=== PATIENT | male | born 1960 | race Caucasian/White ===

== ENCOUNTER 2019-02-14 05:55 | Observation (INO) ==
--- NOTE | 2019-01-23 13:13 | Anesthesiology Consultation ---
Date of Service January 23, 2019 Assessment & Plan (1) Encounter for pre-operative examination: Chart Review Chart Review: Acceptable Risk for Surgery and Patient NOT seen in Pre Admission Testing Consults Requested none History Surgery Operation Date: 02/14/19 09:05 Proposed Procedures p C6-C7 Anterior Cervical Discectomy Fusion with Spinal Cord Monitoring - Kirk Barajas DO Height/Weight Height: 5 ft 10 in Weight: 113.398 kg Allergies Allergy/AdvReac Type Severity Reaction Status Date / Time adhesive Allergy Unknown Rash Verified 01/23/19 08:54 ciprofloxacin [From Cipro] Allergy Unknown Rash Verified 01/23/19 08:43 tetanus toxoid, adsorbed Allergy Unknown Rash Verified 01/23/19 08:43 Medications Home Medications Medication Instructions Recorded Confirmed Last Taken allopurinol 100 mg PO BID 01/23/19 01/23/19 Unknown atorvastatin [Lipitor] 40 mg PO HS 01/23/19 01/23/19 Unknown docusate sodium [Stool Softener] 100 mg PO HS 01/23/19 01/23/19 Unknown hydrocodone-acetaminophen [[place]] 1 tab PO BID PRN 01/23/19 01/23/19 Unknown levothyroxine [Synthroid] 137 mcg PO QAM 01/23/19 01/23/19 Unknown simethicone [Gas-X Extra Strength] 125 mg PO BID 01/23/19 01/23/19 Unknown Past Medical History Medical History Gout Hyperlipidemia Numbness and tingling RIGHT ARM AND SMALL FINGER Past Surgical History Surgical History History of Angi fundoplication Hx of cervical spine surgery Hx of cholecystectomy Hx of colonoscopy Hx of hernia repair X2 STOP BANG Total 3 Social History Smoking Status: Never smoker Do You Dip or Chew Tobacco: No Hx Alcohol Use: Yes Alcohol type: wine alcohol intake frequency: holidays/special occasions only Hx Substance Use: No Testing Laboratory Results 12/27/18 NA 141 K 3.8 CL 107 CO2 25.4 BUN 11 CREATININE .91 GLUCOSE 84 Electrocardiogram Date: 12/27/18 Findings: + SB @ (58 bpm) Chest X-Ray Date: 12/27/18 Findings: + NAD
[2019-02-14] MEDS ORDERED: LR 15ML/HR IV SCH (06:00)
[2019-02-14] MEDS ORDERED: ACETAMINOPHEN 500 MG TAB PO SCH (06:00)
[2019-02-14] MEDS ORDERED: GABAPENTIN 600 MG DOSE PO SCH (06:00)
[2019-02-14] MEDS ORDERED: CeleBREX 200 MG CAP PO SCH (06:00)
[2019-02-14] MEDS ORDERED: CEFAZOLIN 2000MG 2,000 MG/15 ML SYR IV SCH (06:00)
[2019-02-14] MEDS ORDERED: PROPOFOL IV EMULSION 10 MG/ML 20 ML VIAL IV ONE (06:43)
[2019-02-14] MEDS ORDERED: MIDAZOLAM HCL 1 MG/ML 2ML VIAL ONE (06:43)
[2019-02-14] MEDS ORDERED: fentaNYL citrate 100 MCG/2 ML VIAL ONE ×2 (06:43→08:37)
[2019-02-14] MEDS ORDERED: ROCURONIUM BROMIDE 10 MG/ML 5 ML VIAL ONE (06:43)
[2019-02-14] MEDS ORDERED: LIDOCAINE HCL 2% 2 ML VIAL/AMP(20MG/ML) INFIL ONE (06:43)
[2019-02-14] MEDS ORDERED: ONDANSETRON INJ 2 MG/ML 2 ML VIAL ONE (06:43)
[2019-02-14] MEDS ORDERED: ONDANSETRON INJ 2 MG/ML 2 ML VIAL IV PRN ×2 (07:29→11:52)
[2019-02-14] MEDS ORDERED: fentaNYL citrate 100 MCG/2 ML VIAL IV PRN (07:29)
[2019-02-14] MEDS ORDERED: ePHEDrine sulfate 50 MG/ML AMP IV PRN (07:29)
[2019-02-14] MEDS ORDERED: ATROPINE SULFATE 0.1 MG/ML 10ML SYR IV PRN (07:29)
[2019-02-14] MEDS ORDERED: BACITRACIN INJ 50,000 UNIT VIAL ONE (07:31)
--- NOTE | 2019-02-14 08:07 | History & Physical Bridge Note ---
Date of Service February 14, 2019 History & Physical Bridge Note I have examined the patient, reviewed the History & Physical and in the interval since the performance of the History & Physical I have noted the following changes of clinical significance: no changes noted
--- NOTE | 2019-02-14 08:08 | History & Physical Report ---
Date of Service February 14, 2019 Assessment & Plan (1) Cervical stenosis of spinal canal: Anterior cervical discectomy and fusion C6-C7 Present on Admission?: Yes History of Present Illness Chief Complaint: Neck and arm pain Primary Care Provider: Chan Conti This is a 58-year-old male who presents with chronic persistent neck and arm pain. After failing extensive course of nonoperative care is here for surgical intervention. Allergies Allergy/AdvReac Type Severity Reaction Status Date / Time adhesive Allergy Unknown Rash Verified 02/14/19 06:25 ciprofloxacin [From Cipro] Allergy Unknown Rash Verified 02/14/19 06:25 tetanus toxoid, adsorbed Allergy Unknown Rash Verified 02/14/19 06:25 Home Medications Home Medications Medication Instructions Recorded Confirmed Type allopurinol 100 mg PO BID 01/23/19 02/14/19 History atorvastatin [Lipitor] 40 mg PO HS 01/23/19 02/14/19 History docusate sodium [Stool Softener] 100 mg PO HS 01/23/19 02/14/19 History hydrocodone-acetaminophen [[place]] 1 tab PO BID PRN 01/23/19 02/14/19 History levothyroxine [Synthroid] 137 mcg PO QAM 01/23/19 02/14/19 History simethicone [Gas-X Extra Strength] 125 mg PO BID 01/23/19 02/14/19 History Past Med/Surg History Medical History Gout Hyperlipidemia Numbness and tingling RIGHT ARM AND SMALL FINGER Surgical History History of Angi fundoplication Hx of cervical spine surgery Hx of cholecystectomy Hx of colonoscopy Hx of hernia repair X2 Social History Preferred Language: Japanese Communication Ability: Effective Beliefs That Will Affect Care: None Current Living Situation: Spouse Feels Safe at Home: Yes Safety Concerns: Feels Safe At This Time Smoking Status: Never smoker Do You Dip or Chew Tobacco: No ; Second Hand Exposure: No ; Hx Alcohol Use: Yes Alcohol type: wine Hx Substance Use: No Physical Exam Physical Exam: Patient is alert and oriented neurologically intact. Results & Data Vital Signs (Past 12 Hours) Vital Signs Temp Pulse Resp BP Pulse Ox 02/14/19 06:26 36.6 C 52 L 20 134/90 97
[2019-02-14] MEDS ORDERED: HYDROmorphone INJ 2 MG/ML SYR/VIAL ONE (09:05)
[2019-02-14] MEDS ORDERED: NEOSTIGMINE METHYLSULFATE 1 MG/ML 10ML VIAL ONE (09:32)
[2019-02-14] MEDS ORDERED: GLYCOPYRROLATE 0.2 MG/ML VIAL ONE (09:32)
[2019-02-14] MEDS ORDERED: FLOSEAL HEMOSTATIC MATRIX 10ML TOP ONE (09:39)
--- NOTE | 2019-02-14 09:45 | Operative Report ---
Post Operative Report Pre & Post Diagnosis Operation Date: 02/14/19 07:45 Pre-Op Diagnosis: Cervical spinal stenosis with herniated was pulposis and radiculopathy Post-Op Diagnosis: Same I identified the patient and participated in the time-out.: Yes Procedure Operation Date: 02/14/19 07:45 Actual Procedures #1 anterior cervical discectomy with bilateral foraminotomies C6-7. #2 anterior cervical arthrodesis C6-7. #3 placement of Spira 9 mm cage filled with DBM C6- 7. #4 placement of zurita plate and screws across C6-7. Surgeon Kirk Barajas, DO [employer] None Estimated Blood Loss 10 Findings See Below Patient is 5 foot 8 inches tall weighing over 114 kg with a BMI in excess of 38. Patient's significant body habitus did create marked technical difficulty in performing his procedure adding at least 50% increase in operative time. Specimens None Indications This is a 58-year-old male who presents with above-mentioned diagnosis after failing extensive course of nonoperative care is here for surgical intervention. Description of Procedure Patient was met with identified and informed consent obtained. Patient was then taken to the operative suite underwent intubation placed in supine position Weston table with head Camacho head piece assembler. All bony prominences well-padded eyes inspected to ensure no external pressure placed upon but this point the anterior cervical spine was prepped and draped in normal sterile fashion. With the assistance of fluoroscopy identified the C6-7 level and a transverse incision was placed on the right anterior aspect of the cervical spine overlying this region. Sharp dissection with the assistance of bipolar electrocautery was performed down to and exposing the anterior cervical spine at C6-7. Self- retaining retractors placed. Verified my position with fluoroscopy. Then performed a complete discectomy of C6-7 out to the uncovertebral joints bilaterally. Sherrill distracting pins you were utilized to assist in visualization. I removed all posterior annular fibers longitudinal ligament bilateral foraminotomies performed. All disc material was removed. Endplates were then burred to subcortical being bone and a 9 mm spiral cage filled with DBM tapped in position. Distraction apparatus was removed and a zurita plate and screws applied with the assistance of fluoroscopy. Incision was then copious irrigated explored to ensure no damage to surrounding structures remaining bleeding. 10 round RUSTY drain inserted. The incision was then closed with 2 Vicryl in the fashion of 4 Monocryl for final skin closure. Steri-Strip sterile dressings placed. Patient will continue PACU stable condition. Please note spinal cord monitoring was utilized that the procedure no changes noted. I attest to the content of the Intraoperative Record and any orders documented therein. Any exceptions are noted below.
--- NOTE | 2019-02-14 09:51 | Fluoroscopy Report ---
FL cervical 2-3V CLINICAL HISTORY: ACDF C6-C7 COMPARISON STUDY: None FLUOROSCOPY TIME: 17 seconds NUMBER OF FLUOROSCOPIC IMAGES: 4 FINDINGS: Findings consistent with image intensifier support for an anterior cervical fusion at C6-C7 . IMPRESSION: Image intensifier support for an anterior cervical fusion at C6-C7 The above report was generated using voice recognition software. It may contain grammatical, syntax or spelling errors. Electronically signed by: Manuel Negrete M.D. 02/14/2019 9:49 AM
--- NOTE | 2019-02-14 10:40 | Anesthesiology Progress Note ---
Date of Service February 14, 2019 Anesthesia Post Procedure Vital Signs Vital Signs: Temp Pulse Pulse Resp BP Pulse Ox 02/14/19 10:25 50 L 17 147/93 H 99 02/14/19 10:15 56 L 17 139/90 100 02/14/19 10:05 62 17 141/92 H 99 02/14/19 09:56 96.8 F L 77 18 148/98 H 98 02/14/19 06:26 97.9 F 52 L 20 134/90 97 Pain Intensity Right Knee: Pain Intensity: 8 Anterior Neck: Pain Intensity: 3 Transfer of Care Handoff Completed per policy Notes Mental Status: alert / awake / arousable and participated in evaluation Patient Amnestic to Procedure: Yes Nausea / Vomiting: adequately controlled Pain: adequately controlled Airway Patency, RR, SpO2: stable & adequate BP & HR: stable & adequate Hydration State: stable & adequate Anesthetic Complications: no major complications apparent and Pt Satisfied with anesthetic care
[2019-02-14] MEDS ORDERED: ONDANSETRON 4 MG TAB PO PRN (11:52)
[2019-02-14] MEDS ORDERED: SOD PHOSPHATE/SOD BIPHOSPHATE ENEMA 132 ML BTL PR PRN (11:52)
[2019-02-14] MEDS ORDERED: HYDROmorphone INJ 0.5 MG/0.5 ML SYR IV PRN (11:52)
[2019-02-14] MEDS ORDERED: LORazepam 0.5 MG TAB PO PRN (11:52)
[2019-02-14] MEDS ORDERED: DO NOT ADMINISTER FLU VACCINE PRN (11:52)
[2019-02-14] MEDS ORDERED: ACETAMINOPHEN 1,000 MG/100 ML VIAL IV PRN (11:52)
[2019-02-14] MEDS ORDERED: HYDROmorphone INJ 1 MG/ML SYRINGE IV PRN (11:52)
[2019-02-14] MEDS ORDERED: ALUMINUM/MAGNESIUM SUSP 30 ML UDC PO PRN (11:52)
[2019-02-14] MEDS ORDERED: FAMOTIDINE 20 MG TAB PO PRN (11:52)
[2019-02-14] MEDS ORDERED: METOCLOPRAMIDE HCL INJ 5 MG/ML 2 ML VIAL IV PRN (11:52)
[2019-02-14] MEDS ORDERED: DEXAMETHASONE SOD PHOSPHATE 8 MG in SYRINGE 0 ML IV PRN (11:52)
[2019-02-14] MEDS ORDERED: RACEPINEPHRINE 2.25% NEBU SOLN 0.5 ML VIAL INH PRN (11:52)
[2019-02-14] MEDS ORDERED: TRAMADOL HCL 50 MG TABLET PO PRN (11:52)
[2019-02-14] MEDS ORDERED: LORazepam 0.5 MG/1 ML VIAL IV PRN (11:52)
[2019-02-14] MEDS ORDERED: PROMETHAZINE HCL 12.5 MG in SODIUM CHLORIDE 0.9% 50 ML IV PRN (11:52)
[2019-02-14] MEDS ORDERED: ACETAMINOPHEN 500 MG TAB PO PRN (11:52)
[2019-02-14] MEDS ORDERED: NALOXONE HCL 0.4 MG/1 ML VIAL/CARP IV PRN (11:52)
[2019-02-14] MEDS ORDERED: DO NOT ADMINISTER PNEUMOCOCCAL VACCINE PRN (11:52)
[2019-02-14] MEDS ORDERED: MAGNESIUM HYDROXIDE SUSP 30 ML UDC PO PRN (11:52)
[2019-02-14] MEDS: OXYCODONE HCL IR 5 MG TAB (IMMEDIATE RELEASE) PO PRN ×3 (13:34→23:34)
[2019-02-14] MEDS: LACTATED RINGER'S 1,000 ML IV SCH ×2 (15:25→23:37)
[2019-02-14] MEDS: CEFAZOLIN 2000MG 2,000 MG/15 ML SYR IV SCH ×2 (15:25→23:36)
[2019-02-14] MEDS: SIMETHICONE 80 MG CHEW PO SCH (20:46)
[2019-02-14] MEDS: allopurinoL 100 MG TAB PO SCH (20:46)
[2019-02-14] MEDS ORDERED: DOCUSATE SODIUM/SENNA 50/8.6MG TAB PO SCH (21:00)
[2019-02-14] MEDS ORDERED: NON-FORMULARY MEDICATION (Docusate Sodium [Stool Softener] 100 MG) PO SCH (21:00)
[2019-02-14] MEDS ORDERED: ATORVASTATIN 40 MG TAB PO SCH (21:00)
[2019-02-15 05:57] LABS: Basophils # (auto) 0.02 K/uL (0-0.2); Basophils % (auto) 0.3 %; Eosinophils # (auto) 0.16 K/uL (0-0.5); Eosinophils % (auto) 2.2 %; Hematocrit (blood only) 42.4 % (42-52); Hemoglobin 13.7 g/dL (14.0-18.0); Immature Granulocytes # (auto) 0.01 K/uL (0.00-0.02); Immature Granulocytes % (auto) 0.1 %; Lymphocytes # (auto) 1.41 K/uL (1.2-3.4); Lymphocytes % (auto) 19.1 %; Mean Corpuscular Hemoglobin 31.6 pg (25-34); Mean Corpuscular Hgb Conc 32.3 g/dL (32-36); Mean Corpuscular Volume 97.9 fL (80-100); Mean Platelet Volume 10.1 fL (7.4-10.4); Monocytes # (auto) 0.66 K/uL (0.11-0.59); Neutrophils # (auto) 5.11 K/uL (1.4-6.5); Neutrophils % (auto) 69.3 %; Platelet Count 165 K/uL (130-400); RDW Coefficient of Variation 13.4 % (11.5-14.5); RDW Standard Deviation 48.5 fL (36.4-46.3); Red Blood Count 4.33 M/uL (4.7-6.1); White Blood Count 7.37 K/uL (4.8-10.8)
[2019-02-15] MEDS: OXYCODONE HCL IR 5 MG TAB (IMMEDIATE RELEASE) PO PRN ×2 (06:29→11:19)
[2019-02-15] MEDS ORDERED: LEVOTHYROXINE SODIUM 137 MCG TABLET PO SCH ×2 (06:30→09:00)
[2019-02-15 06:31] LABS: BUN Creatinine Ratio 12.2 (10-20); Creatinine Clr Calc Pharmacy 106.4 ml/min; Est GFR (African American) 103.9; Est GFR (Non-African American) 89.6; Potassium 4.1 mmol/L (3.5-5.1)
[2019-02-15] MEDS: allopurinoL 100 MG TAB PO SCH (08:31)
[2019-02-15] MEDS: SIMETHICONE 80 MG CHEW PO SCH (08:31)
[2019-02-15] MEDS ORDERED: POLYETHYLENE (MIRALAX) 17 GM PACK PO SCH (09:45)
--- NOTE | 2019-02-15 10:15 | Discharge Summary ---
Date of Service February 15, 2019 Admission HPI Per Admitting Provider This is a 58-year-old male who presents with chronic persistent neck and arm pain. After failing extensive course of nonoperative care is here for surgical intervention. Principal Diagnosis Cervical spinal stenosis with radiculopathy Discharge Data Allergies Allergy/AdvReac Type Severity Reaction Status Date / Time adhesive Allergy Unknown Rash Verified 02/14/19 06:25 ciprofloxacin [From Cipro] Allergy Unknown Rash Verified 02/14/19 06:25 tetanus toxoid, adsorbed Allergy Unknown Rash Verified 02/14/19 06:25 Procedures Performed Operation Date: 02/14/19 07:45 Actual Procedures p C6-C7 Anterior Cervical Discectomy Fusion with Spinal Cord Monitoring(Not Applicable) - Kirk Barajas DO Ordered Studies 02/14/19 07:45 FL cervical 2-3V Routine FL fluoroscopy <1hr Routine Hospital Course (1) Cervical stenosis of spinal canal: Patient underwent anterior cervical discectomy and fusion tolerated this well was taken to orthopedic for possibly. Postop day 1 he was up and ambulating swallowing well no hoarseness. Arm symptoms improved. Strength intact. Subsequently discharged home. Discharge orders instructions from the chart for further review. Total Time Total Time Spent Total Time Spent (In Minutes): 20 minutes Discharge Plan Discharge Items Patient Disposition: Home - Self-Care Reason For Visit: Spinal Stenosis, Cervical Region Discharge Diagnosis: Cervical spinal stenosis with radiculopathy Activity: Per Instructions section Non-emergency contact: Primary Care Provider Call non-emergency contact if: you have any medication questions Follow-up/Referrals: Chan Conti DO [Primary Care Provider] - Diet: Regular Addtl Attending Provider Instructions: ACTIVITY RECOMMENDATIONS: SELF CARE INSTRUCTIONS AFTER CERVICAL FUSIONS 1. No smoking. Smoking drastically decreases the chance of a solid fusion. 2. No bending, lifting more than 5 pounds, or twisting (roll like a log when turning in bed). 3. You may shower 3 days after surgery. Thoroughly dry wound. Do not soak in the tub. 4. Cervical collar: Must be worn at all times including sleeping. You may remove the brace only to bath, eat and if you are sitting in a recliner. 5. Please walk as much as you can for exercise. Gradually increase the distance that you walk as your endurance increases. SPECIAL CARE INSTRUCTIONS: VERY IMPORTANT TO READ AND REVIEW A. Do not take any anti-inflammatory medications (i.e. Indocin, Advil, Aspirin, Naprosyn, Aleve, Motrin, etc.) as these may inhibit the chance of a solid fusion. Tylenol is okay to take. B. Your surgical incision has been closed with a cosmetic suture under the skin that will dissolve in about 6 weeks. In 14 days, you can use a pair of clean scissors and cut the suture that is left outside of the skin at the ends of your incision. C. Complications are uncommon, but please contact us if you have any signs or symptoms of: 1. wound infection (fever higher than 102.5 degrees F, redness, separation of wound, drainage, or increasing pain from the incision) 2. blood clots in legs (pain, swelling, redness and warmth in legs) 3. urinary tract infection (fever higher than 102.5 degrees, burning upon urination or increased frequency of urination) 4. nerve problems (inability to walk on your toes or heels, numbness, loss of bowel or bladder control) 5. any other symptoms that concern you. D. Please call the office at if you have any concerns or questions about your operation or recovery. MANAGING PAIN AFTER SPINAL SURGERY 1. Narcotic medication is intended for short-term use and will be provided for surgical pain. Surgical pain usually lasts for a period of 4-6 weeks. Narcotic medication includes Percocet, Vicodin, Darvocet, Tylenol #3 or Lortab. 2. Longer-term pain is more appropriately treated with non-narcotic medication such as Tylenol ES. 3. Muscle spasm is not appropriately treated with narcotics. Muscle relaxers such as Soma, Flexeril or Skelaxin can be used along with Tylenol ES. 4. Remember that we all live with some "aches and pains". This is not unusual or uncommon after an injury or as we get older. 5. We will provide appropriate medication within the normal guidelines of their prescribed use. We will also be very cautious and aware of potential abuse and extended duration of patients' medication needs. 6. Please allow 2-3 days to process refills. Prescriptions will not be mailed but must be picked up at the office. FOLLOW UP VISIT: Keep your scheduled follow-up appointment. Any questions, please call the office at . Pending Studies at Discharge: No Stand-Alone Forms: [facility] [place], Smoking Cessation Medications and DC Order Prescriptions: New oxycodone 5 mg Tablet 5 mg PO Q4H PRN (Reason: pain) Qty: 20 RF: 0 tramadol 50 mg Tablet 50 mg PO Q4H PRN (Reason: pain) Qty: 20 RF: 0 Continued atorvastatin [Lipitor] 40 mg Tablet 40 mg PO HS RF: 0 levothyroxine [Synthroid] 137 mcg Tablet 137 mcg PO QAM RF: 0 hydrocodone-acetaminophen [[place]] 5-325 mg Tablet 1 tab PO BID PRN (Reason: Pain) RF: 0 allopurinol 100 mg Tablet 100 mg PO BID RF: 0 docusate sodium [Stool Softener] 100 mg Tablet 100 mg PO HS RF: 0 simethicone [Gas-X Extra Strength] 125 mg Capsule 125 mg PO BID RF: 0 Discharge Orders: Discharge Order (Routine); Ordered 02/15/19 Ordered By: Kirk Barajas Admission Data Admit Date/Time: 02/14/19 09:47 Attending Provider: Kirk Barajas Admit Provider: Kirk Barajas Primary Care Provider: Chan Conti
[2019-02-16] MEDS ORDERED: bisacodyL 10 MG SUPP PR PRN (09:45)
== END 2019-02-15 11:39 | disposition home or self-care (01) ==
LOC: 3E 05:55 → ASU 05:55

== ENCOUNTER 2022-07-29 09:44 | Inpatient (IN) ==
--- NOTE | 2022-07-09 10:17 | PAT Medication Instructions ---
Medication Instructions Date of Service July 09, 2022 Home Medications Medication Instructions Recorded oxycodone 5 mg tablet 5 mg PO Q4H PRN pain #20 tabs 02/15/19 Medication List: allopurinol 100 mg tablet 100 mg PO BID atorvastatin 40 mg tablet (Lipitor) 40 mg PO HS docusate sodium 100 mg tablet (Stool Softener) 100 mg PO HS hydrocodone 5 mg-acetaminophen 325 mg tablet ([place]) 1 tab PO TID PRN Pain simethicone 125 mg capsule (Gas-X Extra Strength) 125 mg PO BID oxycodone 5 mg tablet 5 mg PO Q4H PRN pain #20 tabs ascorbic acid (vitamin C) 500 mg tablet (Vitamin C) 500 mg PO QAM cholecalciferol (vitamin D3) 50 mcg (2,000 unit) capsule (Vitamin D3) 50 mcg PO QAM cyanocobalamin (vitamin B-12) 2,500 mcg sublingual tablet (Vitamin B-12) 2,500 mcg sublingual QAM levothyroxine 150 mcg tablet 150 mcg PO QAM magnesium 250 mg tablet 250 mg PO QAM DO NOT take the morning of surgery magnesium 250 mg tablet 250 mg PO QAM ascorbic acid (vitamin C) 500 mg tablet (Vitamin C) 500 mg PO QAM cholecalciferol (vitamin D3) 50 mcg (2,000 unit) capsule (Vitamin D3) 50 mcg PO QAM cyanocobalamin (vitamin B-12) 2,500 mcg sublingual tablet (Vitamin B-12) 2,500 mcg sublingual QAM simethicone 125 mg capsule (Gas-X Extra Strength) 125 mg PO BID Take morning of surgery With a small sip of water, OTHERWISE NOTHING TO EAT OR DRINK AFTER MIDNIGHT: hydrocodone 5 mg-acetaminophen 325 mg tablet ([place]) 1 tab PO TID PRN Pain (if needed) oxycodone 5 mg tablet 5 mg PO Q4H PRN pain (if needed) allopurinol 100 mg tablet 100 mg PO BID levothyroxine 150 mcg tablet 150 mcg PO QAM Take evening before surgery hydrocodone 5 mg-acetaminophen 325 mg tablet ([place]) 1 tab PO TID PRN Pain (if needed) oxycodone 5 mg tablet 5 mg PO Q4H PRN pain (if needed) allopurinol 100 mg tablet 100 mg PO BID atorvastatin 40 mg tablet (Lipitor) 40 mg PO HS docusate sodium 100 mg tablet (Stool Softener) 100 mg PO HS simethicone 125 mg capsule (Gas-X Extra Strength) 125 mg PO BID (if needed) Other Notes If you have any questions please call us at [phone] or [phone] or [phone] or [phone]
--- NOTE | 2022-07-15 11:32 | Anesthesiology Consultation ---
Date of Service July 15, 2022 Assessment & Plan (1) Encounter for pre-operative examination: Chart Review Chart Review: Acceptable Risk for Surgery (pending PCP clearance 07/17/22) and Patient seen in Pre Admission Testing - Awaiting PCP clearance 07/17/22 Per PAT appt on 07/15/22, patient denies any recent travel or large group activities. Pt is vaccinated for Covid. Will leave to surgeon's discretion if preop Covid testing needed. Educated on importance of using Covid precautions one week prior to surgery C6-7 ACDF 02/14/19= Done under GA with Grade 2 view with MAC #3. ETT #7.5. Atraumatic DL x 1 Teaching & Discussion Pre-Anesthesia Teaching/Discussion Notes: Instructed NPO after midnight before surgery,except medications with 15 cc of water. Medication instructions provided according to the PAT guidelines. History Surgery Operation Date: 07/29/22 10:05 Proposed Procedures p L4-S1 Decompression and Fusion, Spinal Cord Monitoring - Kirk Barajas, Height/Weight Height: 5 ft 9 in Weight: 121.4 kg Allergies Allergy/AdvReac Type Severity Reaction Status Date / Time adhesive Allergy Unknown Rash Verified 07/09/22 08:27 ciprofloxacin [From Cipro] Allergy Unknown Rash Verified 07/09/22 08:27 tetanus toxoid, adsorbed Allergy Unknown Rash Verified 07/09/22 08:27 Medications Home Medications Medication Instructions Recorded Confirmed Last Taken allopurinol 100 mg tablet 100 mg PO BID 01/23/19 07/09/22 02/13/19 20:00 atorvastatin 40 mg tablet (Lipitor) 40 mg PO HS 01/23/19 07/09/22 02/13/19 20:00 docusate sodium 100 mg tablet 100 mg PO HS 01/23/19 07/09/22 02/13/19 20:00 (Stool Softener) hydrocodone 5 mg-acetaminophen 325 1 tab PO TID PRN Pain 01/23/19 07/09/22 02/14/19 04:30 mg tablet ([place]) simethicone 125 mg capsule (Gas-X 125 mg PO BID 01/23/19 07/09/22 02/13/19 20:00 Extra Strength) oxycodone 5 mg tablet 5 mg PO Q4H PRN pain #20 tabs 02/15/19 07/09/22 Unknown ascorbic acid (vitamin C) 500 mg 500 mg PO QAM 07/09/22 07/09/22 Unknown tablet (Vitamin C) cholecalciferol (vitamin D3) 50 50 mcg PO QAM 07/09/22 07/09/22 Unknown mcg (2,000 unit) capsule (Vitamin D3) cyanocobalamin (vitamin B-12) 2,500 mcg sublingual QAM 07/09/22 07/09/22 Unknown 2,500 mcg sublingual tablet (Vitamin B-12) levothyroxine 150 mcg tablet 150 mcg PO QAM 07/09/22 07/09/22 Unknown magnesium 250 mg tablet 250 mg PO QAM 07/09/22 07/09/22 Unknown Past Medical History Medical History (Updated 07/15/22 @ 15:09 by Suma Cueto PA-C) Chronic back pain Gout No recent issues History of Lyme disease 2001- treated - caused issues with thyroid- resulted in hypothyroidism Hyperlipidemia Hypothyroidism Exercise / Class Metabolic Activity II 4-5 Yardwork/Stairs/Walk up hill (one flight stairs - no chest pain or SOB ) Past Family History Family History Other No family history of adverse response to anesthesia Past Surgical History Surgical History History of Angi fundoplication Hx of blepharoplasty eyelid lift Hx of cervical spine surgery Hx of cholecystectomy Hx of colonoscopy Hx of hernia repair X2 Past Anesthesia History No Hx of Anesthesia Complications and No Family Hx of Anesthesia Complications History of PONV No Hx of PONV and No Hx of Motion Sickness Social History Smoking Status: Never smoker Do You Dip or Chew Tobacco: No Hx Alcohol Use: Yes Alcohol type: wine alcohol intake frequency: holidays/special occasions only Hx Substance Use: No substance use type: does not use Review of Systems Hx of snoring - no hx of sleep study Patient denies chest pain, shortness of breath, dyspnea on exertion, reflux, cough, wheezing, palpitations. No hx of seizures, stroke, DE. No hx of blood clots or blood transfusions Physical Exam Vital Signs VITALS BP 127/82 P 61 TEMP 97.7 SP02 100% RESP 16 Constitutional no acute distress ENMT Mouth: no TMJ clicking Thyromental Distance: < 3.5 Finger Breadths (2.5) Mallampati Class: II (smaller airway ) Crowns to molars Neck + limited neck extension (significant ) Respiratory normal respiratory effort; no respiratory distress Auscultation: lungs clear to auscultation bilaterally; no wheezes Cardiovascular Rate/Rhythm: regular rate and regular rhythm Heart Sounds: no murmur Vessels: no carotid bruit Musculoskeletal Spine: no pain with cervical ROM Extremities: extremities normal to inspection Psychiatric Orientation: alert Lab Results Anesthesia Preop Results Results Anesthesia Widget: WBC 5.97 K/ul (4.8-10.8) 07/15/22 Hgb 15.1 g/dl (14.0-18.0) 07/15/22 Hct 44.3 % (42.0-52.0) 07/15/22 Plt 227 K/uL (130-400) 07/15/22 Na 140 mmol/L (136-145) 07/15/22 K 4.2 mmol/L (3.5-5.1) 07/15/22 Cl 106 mmol/L (98-107) 07/15/22 CO2 28 mmol/L (21-32) 07/15/22 BUN 12 mg/dl (6-23) 07/15/22 Creat 0.85 mg/dl (0.6-1.4) 07/15/22 Glucose Level 91 mg/dl (70-99(Fasting)) 07/15/22 PT 10.3 Seconds (9.0-12.0) 07/15/22 PTT 27.7 Seconds (21.0-31.0) 07/15/22 INR 1.0 (0.9-1.1) 07/15/22 Urine Color Dark Yellow 07/15/22 Urine Appearance Clear (Clear) 07/15/22 Urine pH 7.0 (4.5-7.5) 07/15/22 Urine Specific [place] 1.026 (1.000-1.030) 07/15/22 Urine Protein Negative (Negative) 07/15/22 Urine Glucose (UA) Negative (Negative) 07/15/22 Urine Ketones Trace (Negative) H 07/15/22 Urine Blood Negative (Negative) 07/15/22 Urine Nitrite Negative (Negative) 07/15/22 Urine Bilirubin Negative (Negative) 07/15/22 Urine Urobilinogen Negative (Negative) 07/15/22 Urine Leukocyte Esterase Negative (Negative) 07/15/22 Blood Type A Positive 07/15/22 Antibody Screen NEGATIVE 07/15/22 Testing Electrocardiogram Date: 07/15/22 Findings: + SB @ (52bpm) Otherwise normal EKG per cardio Chest X-Ray Date: 07/15/22 Findings: + NAD COVID-19 Risk Screen Screening Information COVID-19 Screen Date: 07/15/22 Exposure 21 Days Family/Household +COVID Last 21 Days: No Exposure 10 Days Any COVID Exposure Last 10 Days: No Symptoms Last 10 Days Experienced COVID Sx Last 10 Days: No + COVID 0-90 Days COVID + in Last 0-90 Days: No Risk Plan COVID Risk Plan: No Risk Identified Patient Education COVID Preop Screening Education Complete: Yes
[~2022-07-29 09:44] MED LIST: ACETAMINOPHEN 500 MG TAB PO SCH; CeleBREX 200 MG CAP PO SCH; DEXAMETHASONE SOD INJ 4 MG/ML VIAL ONE; GABAPENTIN 600 MG DOSE PO SCH; GLYCOPYRROLATE 0.2 MG/ML VIAL ONE; LIDOCAINE 2% 2 ML VIAL/AMP(20MG/ML) INFIL ONE; LR 15ML/HR IV SCH; MIDAZOLAM HCL 1 MG/ML 2ML VIAL ONE; ONDANSETRON INJ 2 MG/ML 2 ML VIAL ONE; PHENYLEPHRINE HCL 10 MG/ML VIAL ONE; PROPOFOL IV EMULSION 10 MG/ML 20 ML VIAL IV ONE; ROCURONIUM BROMIDE 10 MG/ML 5 ML VIAL IV ONE; fentaNYL citrate PF 100 MCG/2 ML VIAL ONE
[2022-07-29] MEDS ORDERED: ONDANSETRON INJ 2 MG/ML 2 ML VIAL IV PRN ×2 (10:59→16:43)
[2022-07-29] MEDS ORDERED: ePHEDrine sulfate 50 MG/ML AMP IV PRN (10:59)
[2022-07-29] MEDS ORDERED: ATROPINE SULFATE 0.1 MG/ML 10ML SYR IV PRN (10:59)
[2022-07-29] MEDS ORDERED: PROMETHAZINE HCL 6.25 MG in SODIUM CHLORIDE 0.9% 50 ML IV PRN (10:59)
[2022-07-29] MEDS ORDERED: LIDOCAINE 2% MPF LOCAL 5 ML VIAL ONE (11:34)
[2022-07-29] MEDS ORDERED: DEXAMETHASONE SOD INJ 4 MG/ML VIAL ONE (11:34)
[2022-07-29] MEDS ORDERED: ONDANSETRON INJ 2 MG/ML 2 ML VIAL ONE (11:34)
[2022-07-29] MEDS ORDERED: PROPOFOL IV EMULSION 10 MG/ML 20 ML VIAL IV ONE (11:34)
[2022-07-29] MEDS ORDERED: ROCURONIUM BROMIDE 10 MG/ML 5 ML VIAL IV ONE (11:34)
[2022-07-29] MEDS ORDERED: MIDAZOLAM HCL 1 MG/ML 2ML VIAL ONE (11:35)
[2022-07-29] MEDS ORDERED: fentaNYL citrate PF 100 MCG/2 ML VIAL ONE (11:35)
--- NOTE | 2022-07-29 12:00 | History & Physical Bridge Note ---
Date of Service July 29, 2022 History & Physical Bridge Note I have examined the patient, reviewed the History & Physical and in the interval since the performance of the History & Physical I have noted the following changes of clinical significance: no changes noted
--- NOTE | 2022-07-29 12:01 | History & Physical Report ---
Date of Service July 29, 2022 Assessment & Plan (1) Neurogenic claudication due to lumbar spinal stenosis: Plan: L4-S1 decompression and fusion History of Present Illness Chief Complaint: Back and leg pain Primary Care Provider: Adi Santiago MD This is a 61-year-old male who presents with worsening back and leg pain after failing course of nonoperative care is here for surgical intervention. Allergies Allergy/AdvReac Type Severity Reaction Status Date / Time adhesive Allergy Unknown Rash Verified 07/29/22 10:08 ciprofloxacin [From Cipro] Allergy Unknown Rash Verified 07/29/22 10:08 tetanus toxoid, adsorbed Allergy Unknown Rash Verified 07/29/22 10:08 Home Medications Medication Instructions Recorded Confirmed Type allopurinol 100 mg tablet 100 mg PO BID 01/23/19 07/29/22 History atorvastatin 40 mg tablet (Lipitor) 40 mg PO HS 01/23/19 07/29/22 History docusate sodium 100 mg tablet 100 mg PO HS 01/23/19 07/29/22 History (Stool Softener) hydrocodone 5 mg-acetaminophen 325 1 tab PO TID PRN Pain 01/23/19 07/29/22 History mg tablet ([place]) simethicone 125 mg capsule (Gas-X 125 mg PO BID PRN Gastrointestinal 01/23/19 07/29/22 History Extra Strength) Spasms Or Cramping ascorbic acid (vitamin C) 500 mg 500 mg PO QAM 07/09/22 07/29/22 History tablet (Vitamin C) cholecalciferol (vitamin D3) 50 50 mcg PO QAM 07/09/22 07/29/22 History mcg (2,000 unit) capsule (Vitamin D3) cyanocobalamin (vitamin B-12) 2,500 mcg sublingual QAM 07/09/22 07/29/22 History 2,500 mcg sublingual tablet (Vitamin B-12) levothyroxine 150 mcg tablet 150 mcg PO QAM 07/09/22 07/29/22 History magnesium 250 mg tablet 250 mg PO QAM 07/09/22 07/29/22 History gabapentin 600 mg tablet 600 mg PO TID 07/29/22 07/29/22 History Past Med/Surg History Medical History (Updated 07/29/22 @ 12:00 by Kirk Barajas DO) Chronic back pain Gout No recent issues History of Lyme disease 2002- treated - caused issues with thyroid- resulted in hypothyroidism Hyperlipidemia Hypothyroidism Surgical History History of Angi fundoplication Hx of blepharoplasty eyelid lift Hx of cervical spine surgery Hx of cholecystectomy Hx of colonoscopy Hx of hernia repair X2 Family History Other No family history of adverse response to anesthesia Social History Smoking Status: Never smoker Second Hand Exposure: No; Do You Dip or Chew Tobacco: No; Tobacco Cessation Education Requested by Patient: No Hx Alcohol Use: Yes Alcohol type: wine Hx Substance Use: No Preferred Language: Slovenian Communication Ability: Effective Transportation Inspector Required: No Beliefs That Will Affect Care: None marital status: Current Living Situation: Spouse Feels Safe at Home: Yes Safety Concerns: Feels Safe At This Time Assistive Devices: Contacts and Glasses Physical Exam Physical Exam: Patient is alert and oriented Heart regular rhythm Lungs clear Results & Data Results & Data Vital Signs (Past 12 Hours) Vital Signs Temp Pulse Resp BP Pulse Ox O2 Del Method 07/29/22 10:24 36.6 C 60 18 148/92 H 98 Room Air
[2022-07-29] MEDS ORDERED: BUPIVACAINE/EPINEPHRINE 0.25% 1:200,000 30 ML VIAL ONE (12:13)
[2022-07-29] MEDS ORDERED: ceFAZolin 330 MG/ML 1 GM VIAL ONE (12:13)
[2022-07-29] MEDS ORDERED: ePHEDrine sulfate 50 MG/ML AMP ONE (14:17)
[2022-07-29] MEDS ORDERED: HYDROmorphone INJ 2 MG/ML SYR/VIAL ONE (14:26)
[2022-07-29] MEDS ORDERED: GLYCOPYRROLATE 0.2 MG/ML VIAL ONE (14:27)
[2022-07-29] MEDS ORDERED: NEOSTIGMINE METHYLSULFATE 1 MG/ML 10ML VIAL ONE (14:27)
[2022-07-29] MEDS ORDERED: FLOSEAL HEMOSTATIC MATRIX 10ML TOP ONE (14:45)
[2022-07-29] MEDS: fentaNYL citrate PF 100 MCG/2 ML VIAL IV PRN ×2 (15:13→15:18)
--- NOTE | 2022-07-29 15:14 | Fluoroscopy Report ---
[place] lumbar spine 2-3V CLINICAL HISTORY: L4-S1 DFI COMPARISON STUDY: None. FLUOROSCOPY TIME: 33 seconds. EXPOSURE DOSE: 42.05 mGy FLUOROSCOPIC IMAGES: 2 FINDINGS: Fluoroscopy was provided during L4-L5 and L5-S1 discectomies with interbody spacer placemen t. Posterior decompression is noted with bilateral pedicle screws at the L4, L5 and S1 levels with in terconnecting rods. Hardware is intact. IMPRESSION: Fluoroscopy provided during L4-S1 discectomies, posterior decompression and bilateral pe dicle screw fusion. ACT 112: Negative or not required by law. Electronically signed by: Uziel Hernandez M.D. 07/29/2022 3:13 PM
[2022-07-29] MEDS: HYDROmorphone INJ 2 MG/ML SYR/VIAL IV PRN ×4 (15:29→15:44)
--- NOTE | 2022-07-29 15:51 | Operative Report ---
Post Operative Report Pre & Post Diagnosis Operation Date: 07/29/22 11:35 Pre-Op Diagnosis: Lumbar spinal stenosis with neurogenic claudication Spondylolisthesis L4-5 Morbid obesity Post-Op Diagnosis: Same I identified the patient and participated in the time-out.: Yes Procedure Operation Date: 07/29/22 11:35 Actual Procedures #1 lumbar decompression with bilateral medial facetectomies and foraminotomies L3-L4 L4-L5 and L5-S1. #2 posterior spinal fusion L4-L5 L5-S1. #3 placement posterior instrumentation L4-S1. #4 interbody fusion L4-L5 L5-S1. #5 placement of Spira 15 x 26 mm cage at L4-L5 L5-S1. #6 placement locally harvested morselized autograft in the posterior gutters. #7 placement of I factor amount of the talus in the interbody space and posterior lateral gutters. Surgeon Kirk Barajas, DO Supervisor Capacitor Processing Melisa Johnson Estimated Blood Loss 450 Findings See Below The patient is 5 foot 9 weighing over 120 kg with a BMI in excess of 39. The patient body habitus did contribute to significant technical difficulty required deepest retractors and longer instruments in order to perform his procedure. This had at least 50% increased operative time. Specimens None Indications This is a 61-year-old male who presents with above-mentioned diagnosis after failing course of nonoperative care is here for the above-mentioned procedure. Description of Procedure Patient was met with identified informed consent obtained. Patient was then taken to the operative suite underwent ablation placed in a prone position on the [place] table top Mark frame. All bony prominences well-padded eyes inspected to ensure no external pressure placed upon the. At this point the lumbar spine was prepped and draped in normal sterile fashion. Sharp dissection with the assistance of Bovie cautery was performed down to and exposing the lamina transverse processes of L4-L5 and the sacral ala bilaterally. Hernandez cephalad fashion complete laminectomy of L5 L4 partial laminectomy of L3 was performed including bilateral medial facetectomies and foraminotomies addressing severe spinal stenosis. Pedicle screws were then placed in L4-L5 and S1 levels bilaterally with assistance of fluoroscopy and the proper sized valerie placed. By way of transforaminal approach on the left complete discectomy L5-S1 was performed endplates curetted to subcortically bone and a 15 x 26 mm Spira cage with I factor tapped in position. Then proceeded L4-L5 and again by way of a transforaminal approach on the left complete discectomy performed endplates curetted to subcortically bone and a 15 x 26 mm spiral cage with I factor tapped in position. The rods were then compressed locked into final position bilaterally. The transverse processes of L for L5 and the sacral ala burred to subcortical bleeding bone. I factor amount of the test and locally harvested morselized autograft was placed in the posterior gutters. 15 round RUSTY drain inserted. The incision was then closed with 1 Vicryl the fascia 2-0 Vicryl subcutaneously and 4 Monocryl for final skin closure. Steri-Strips and a sterile dressing placed. Patient awakened and taken to PACU stable condition. Please note spinal cord monitoring was utilized at the procedure no changes noted. Lastly Melisa Johnson was present at the entire procedure involved the patient positioning complex portions of the surgery and final skin closure. I attest to the content of the Intraoperative Record and any orders documented therein. Any exceptions are noted below.
--- NOTE | 2022-07-29 15:57 | Anesthesiology Progress Note ---
Date of Service July 29, 2022 Anesthesia Post Procedure Vital Signs Vital Signs: Temp Pulse Pulse Resp BP Pulse Ox O2 Del Method 07/29/22 15:30 58 L 13 129/74 99 Oxymask 07/29/22 15:20 56 L 17 122/81 99 Oxymask 07/29/22 15:50 36.3 C L 59 L 14 123/72 98 Room Air 07/29/22 15:40 36.3 C L 56 L 14 135/76 96 Room Air 07/29/22 15:10 62 16 142/75 H 100 Oxymask 07/29/22 15:01 36.2 C L 60 16 118/65 99 Oxymask 07/29/22 10:24 36.6 C 60 18 148/92 H 98 Room Air O2 Flow Rate 07/29/22 15:30 3 07/29/22 15:20 3 07/29/22 15:50 07/29/22 15:40 07/29/22 15:10 5 07/29/22 15:01 7 07/29/22 10:24 Pain Intensity Back: Pain Intensity: 8 Transfer of Care Handoff Completed per policy Notes Mental Status: alert / awake / arousable Patient Amnestic to Procedure: Yes Nausea / Vomiting: adequately controlled Pain: adequately controlled Airway Patency, RR, SpO2: stable & adequate BP & HR: stable & adequate Hydration State: stable & adequate Anesthetic Complications: no major complications apparent
[2022-07-29] MEDS ORDERED: diphenhydrAMINE Capsule 25 MG CAP PO PRN (16:43)
[2022-07-29] MEDS ORDERED: PROMETHAZINE HCL 12.5 MG in SODIUM CHLORIDE 0.9% 50 ML IV PRN (16:43)
[2022-07-29] MEDS ORDERED: ALUMINUM/MAGNESIUM SUSP 30 ML UDC PO PRN (16:43)
[2022-07-29] MEDS ORDERED: MAGNESIUM HYDROXIDE SUSP 30 ML UDC PO PRN (16:43)
[2022-07-29] MEDS ORDERED: ACETAMINOPHEN 500 MG TAB PO PRN (16:43)
[2022-07-29] MEDS ORDERED: hydrOXYzine HCl 25 MG TAB PO PRN (16:43)
[2022-07-29] MEDS ORDERED: SOD PHOSPHATE/SOD BIPHOSPHATE ENEMA 132 ML BTL PR PRN (16:43)
[2022-07-29] MEDS ORDERED: HYDROmorphone INJ 0.5 MG/0.5 ML SYR IV PRN (16:43)
[2022-07-29] MEDS ORDERED: METOCLOPRAMIDE HCL INJ 5 MG/ML 2 ML VIAL IV PRN (16:43)
[2022-07-29] MEDS ORDERED: LORazepam 2 MG/1 ML VIAL IV PRN (16:43)
[2022-07-29] MEDS ORDERED: ONDANSETRON 4 MG OD TAB PO PRN (16:43)
[2022-07-29] MEDS ORDERED: LORazepam 0.5 MG TAB PO PRN (16:43)
[2022-07-29] MEDS ORDERED: ACETAMINOPHEN 1,000 MG/100 ML VIAL IV PRN (16:43)
[2022-07-29] MEDS ORDERED: DO NOT ADMINISTER PNEUMOCOCCAL VACCINE PRN (16:43)
[2022-07-29] MEDS ORDERED: NALOXONE HCL 0.4 MG/1 ML VIAL/CARP IV PRN (16:43)
[2022-07-29] MEDS ORDERED: bisacodyL 10 MG SUPP PR PRN (16:43)
[2022-07-29] MEDS ORDERED: FAMOTIDINE 20 MG TAB PO PRN (16:43)
[2022-07-29] MEDS ORDERED: HYDROmorphone INJ 1 MG/ML SYRINGE IV PRN (16:43)
[2022-07-29] MEDS ORDERED: DO NOT ADMINISTER FLU VACCINE PRN (16:43)
[2022-07-29] MEDS: oxyCODONE HCL IR 5 MG TAB (IMMEDIATE RELEASE) PO PRN (17:50)
--- NOTE | 2022-07-29 17:51 | Hospitalist Consultation ---
Date of Consultation July 29, 2022 Assessment & Plan (1) Neurogenic claudication due to lumbar spinal stenosis: - Pain management, bowel regimen and DVT ppx per the primary team - PT/OT consults - Follow am CBC to monitor for acute blood loss, last hgb was 15.1 from 07/15/22 - Removal of wesley catheter per primary team - likely tomorrow (2) Hyperlipidemia: - Continue atorvastatin (3) Morbid obesity: - BMI of 39.3 on admission today - Diet and exercise to be encouraged - discussion held at bedside regarding slow increase in physical activity with goal to continue walking, engaging core exercises to strengthen back muscles, encourage PT/OT initially after surgiccal procedure (4) Hypothyroidism: - Cont levothyroxine 150 mcg DVT ppx: - teds, scds CODE: Full code Dispo: From home, likely to remain in the hospital x 1-2 days A total of 37 minutes were spent with greater than 50% of that time face to face with the patient, personally reviewing all current laboratories, imaging studies, past medication reconciliation, outpatient chart review, and discussion with specialists to collaborate care for the patient with attending. Please see attending documentation for corrections and/or additions. Supervising Physician Co-Signing Physician Notes I have seen and examined the patient and have discussed the case with the provider above. I agree with the assessment and plan as stated. Patient is comfortable post op. Pain well controlled. Tolerating PO. No acute issues at this time. Unremarkable physical exam with noted RUSTY drain in place. There is some decreased lower extremity sensation on the left>right that begins distal to the knee and extends to the left foot. TEDs, SCDs in place. Cont current medical management with plan as above. Thank you for this consultation. DO Eduard History of Present Illness Reason for Consultation: Medical management Requesting Physician: Dr. Barajas Attending Physician: Kirk Barajas DO History of Present Illness This is a 61 yo M with PMHx of chronic back pain, HLD, Hypothyroidism, Franklyn Fundoplication in 2011, gout who presented for elective lumbar spine decompression and fusion by Dr. Barajas today. Patient is doing well, his is present at bedside. His pain is currently rated as an 8/9 out of 10 and was just administered oxycodone 10 mg p.o. by nursing. He is feeling still slightly numb on the left side compared to the right in his lower extremities, he is able to wiggle his toes, bend knees, difficult to do dorsiflexion but is improving since coming up from the PACU. He tolerated dinner without any difficulty no nausea no vomiting, patient notes history of belching and requires taking simethicone routinely for abdominal cramping status post his Franklyn fundoplication in 2011. Last bowel movement was yesterday. He has taken all his routine medications as instructed earlier today. Denies any needs for supplemental O2. His and he are fairly active, walk several miles per day as part of routine exercise. Allergies Allergy/AdvReac Type Severity Reaction Status Date / Time adhesive Allergy Unknown Rash Verified 07/29/22 10:08 ciprofloxacin [From Cipro] Allergy Unknown Rash Verified 07/29/22 10:08 tetanus toxoid, adsorbed Allergy Unknown Rash Verified 07/29/22 10:08 Home Medications Medication Instructions Recorded Confirmed Type allopurinol 100 mg tablet 100 mg PO BID 01/23/19 07/29/22 History atorvastatin 40 mg tablet (Lipitor) 40 mg PO HS 01/23/19 07/29/22 History docusate sodium 100 mg tablet 100 mg PO HS 01/23/19 07/29/22 History (Stool Softener) hydrocodone 5 mg-acetaminophen 325 1 tab PO TID PRN Pain 01/23/19 07/29/22 History mg tablet ([place]) simethicone 125 mg capsule (Gas-X 125 mg PO BID PRN Gastrointestinal 01/23/19 07/29/22 History Extra Strength) Spasms Or Cramping ascorbic acid (vitamin C) 500 mg 500 mg PO QAM 07/09/22 07/29/22 History tablet (Vitamin C) cholecalciferol (vitamin D3) 50 50 mcg PO QAM 07/09/22 07/29/22 History mcg (2,000 unit) capsule (Vitamin D3) cyanocobalamin (vitamin B-12) 2,500 mcg sublingual QAM 07/09/22 07/29/22 History 2,500 mcg sublingual tablet (Vitamin B-12) levothyroxine 150 mcg tablet 150 mcg PO QAM 07/09/22 07/29/22 History magnesium 250 mg tablet 250 mg PO QAM 07/09/22 07/29/22 History gabapentin 600 mg tablet 600 mg PO TID 07/29/22 07/29/22 History Patient History Medical History Chronic back pain Gout No recent issues History of Lyme disease 2002- treated - caused issues with thyroid- resulted in hypothyroidism Hyperlipidemia Hypothyroidism Surgical History History of Angi fundoplication Hx of blepharoplasty eyelid lift Hx of cervical spine surgery Hx of cholecystectomy Hx of colonoscopy Hx of hernia repair X2 Family History Other No family history of adverse response to anesthesia Social History Smoking Status: Never smoker Second Hand Exposure: No; Do You Dip or Chew Tobacco: No; Tobacco Cessation Education Requested by Patient: No Hx Alcohol Use: Yes Alcohol type: wine Hx Substance Use: No Preferred Language: Polish Communication Ability: Effective Licensed Funeral Director Required: No Beliefs That Will Affect Care: None marital status: Current Living Situation: Spouse Feels Safe at Home: Yes Safety Concerns: Feels Safe At This Time Assistive Devices: Contacts and Glasses Review of Systems Review of Systems: Constitutional: No fever, sweats or chills Eyes: No diplopia, no worsening or blurred vision ENT: normal hearing, no trouble swallowing Respiratory: No cough, sputum, dyspnea at rest or on exertion Cardiovascular: No chest pain, tightness or palpitations Abdomen: No pain, nausea, vomiting, diarrhea or constipation Back: pain as per HPI s/p surgery Musculoskeletal: No joint pain, calf pain, swelling Neurologic: No weakness, numbness/tingling, or balance problems Psychiatric: No anxiety or depression Skin: No rash or itch Physical Exam Physical Exam: General: awake, alert, no apparent distress, Obese with BMI of 39.3 Head: Normocephalic, atraumatic ENT: PERRL, EOMI, no pharyngeal exudate, mucous membranes moist Chest: Clear to auscultation, on room air, no adventitious breath sounds Cardiac: Regular rate and rhythm, no murmur, no JVD, normal peripheral pulses, good capillary refill Abdominal: NABS x 4 quadrants, soft, nondistended, nontender to palpation, no rebound or guarding Back: Dressing c/d/i, RUSTY drain in place with serosanginous bloody outs : wesley catheter in place draining clear yellow urine Extremities: Normal inspection, no peripheral edema or erythema, calfs nontender to palpation Psych: Normal mood and affect Neuro: AAO x 3, strength intact bilaterally and rated 5/5, + weakness with dorsiflexion bilaterally but rated 4/5, no gross motor deficits, speech is clear, no peripheral sensory deficits Results & Data Results & Data Vital Signs (Past 12 Hours) Vital Signs Temp Pulse Pulse Resp BP Pulse Ox O2 Del Method 07/29/22 17:27 Room Air 07/29/22 16:44 36.4 C L 55 L 16 136/75 99 Room Air 07/29/22 16:20 36.3 C L 53 L 14 130/60 98 Room Air 07/29/22 16:10 36.3 C L 53 L 20 121/71 100 Room Air 07/29/22 16:00 36.3 C L 52 L 15 120/72 100 Room Air 07/29/22 15:30 58 L 13 129/74 99 Oxymask 07/29/22 15:20 56 L 17 122/81 99 Oxymask 07/29/22 15:50 36.3 C L 59 L 14 123/72 98 Room Air 07/29/22 15:40 36.3 C L 56 L 14 135/76 96 Room Air 07/29/22 15:10 62 16 142/75 H 100 Oxymask 07/29/22 15:01 36.2 C L 60 16 118/65 99 Oxymask 07/29/22 10:24 36.6 C 60 18 148/92 H 98 Room Air O2 Flow Rate 07/29/22 17:27 07/29/22 16:44 07/29/22 16:20 07/29/22 16:10 07/29/22 16:00 07/29/22 15:30 3 07/29/22 15:20 3 07/29/22 15:50 07/29/22 15:40 07/29/22 15:10 5 07/29/22 15:01 7 07/29/22 10:24
[2022-07-29] MEDS: LACTATED RINGER'S 1,000 ML IV SCH (17:53)
[2022-07-29] MEDS: traMADol HCL 50 MG TABLET PO PRN (19:51)
[2022-07-29] MEDS: ceFAZolin 2000MG 2,000 MG/15 ML SYR IV SCH (21:12)
[2022-07-29] MEDS: ATORVASTATIN 40 MG TAB PO SCH (21:12)
[2022-07-29] MEDS: DOCUSATE SODIUM/SENNA 50/8.6MG TAB PO SCH (21:12)
[2022-07-29] MEDS: allopurinoL 100 MG TAB PO SCH (21:13)
[2022-07-29] MEDS: GABAPENTIN 600 MG TAB PO SCH (21:14)
[2022-07-29] MEDS: SIMETHICONE 40 MG/0.6 ML 30ML PO SCH (21:20)
[2022-07-30] MEDS: oxyCODONE HCL IR 5 MG TAB (IMMEDIATE RELEASE) PO PRN ×4 (00:03→21:12)
[2022-07-30] MEDS: LACTATED RINGER'S 1,000 ML IV SCH (00:24)
[2022-07-30] MEDS: POLYETHYLENE (MIRALAX) 17 GM PACK PO SCH ×3 (05:53→17:50)
[2022-07-30] MEDS: ceFAZolin 2000MG 2,000 MG/15 ML SYR IV SCH (05:53)
[2022-07-30] MEDS: LEVOTHYROXINE SODIUM 150 MCG TABLET PO SCH (05:53)
[2022-07-30 08:16] LABS: Basophils # (auto) 0.01 K/uL (0-0.2); Basophils % (auto) 0.1 %; Hematocrit (blood only) 38.2 % (42.0-52.0); Hemoglobin 13.1 g/dl (14.0-18.0); Immature Granulocytes # (auto) 0.07 K/uL (0.01-0.20); Immature Granulocytes % (auto) 0.4 %; Lymphocytes # (auto) 0.93 K/uL (1.2-3.4); Lymphocytes % (auto) 5.9 %; Mean Corpuscular Hemoglobin 32.1 pg (25.0-34.0); Mean Corpuscular Hgb Conc 34.3 g/dL (32.0-36.0); Mean Corpuscular Volume 93.6 fL (80.0-100.0); Mean Platelet Volume 10.3 fL (9.4-12.4); Monocytes # (auto) 0.67 K/uL (0.11-0.59); Monocytes % (auto) 4.2 %; Neutrophils # (auto) 14.21 K/uL (1.40-6.50); Neutrophils % (auto) 89.4 %; Platelet Count 222 K/uL (130-400); RDW Coefficient of Variation 12.7 % (11.5-14.5); Red Blood Count 4.08 M/uL (4.70-6.10); White Blood Count 15.89 K/ul (4.8-10.8)
--- NOTE | 2022-07-30 08:30 | Orthopedic Progress Note ---
Date of Service July 30, 2022 Assessment & Plan (1) Neurogenic claudication due to lumbar spinal stenosis: Plan: At this time we will continue physical therapy monitor his RUSTY output hopefully discharge home in the next few days. Admission and Anticipated Discharge Date Admission Date: July 29, 2022 Subjective Patient's back pain is controlled leg pain markedly improved Physical Exam Physical Exam: Patient is in the chair at the bedside. Is good strength testing. Appears comfortable. Results & Data Vital Signs (Past 12 Hours) Vital Signs Temp Pulse Resp BP Pulse Ox O2 Del Method 07/30/22 07:20 36.7 C 61 18 128/74 94 Room Air 07/30/22 04:12 36.6 C 68 18 128/73 95 Room Air 07/29/22 22:49 36.6 C 72 18 122/75 94 Room Air
[2022-07-30 08:31] LABS: BUN Creatinine Ratio 14.1 (10-20); Calcium 8.3 mg/dl (8.6-10.3); Creatinine Clr Calc Pharmacy 109.6 ml/min; Est GFR (African American) 104.4 ml/min; Est GFR (Non-African American) 90.1 ml/min; Potassium 4.2 mmol/L (3.5-5.1)
[2022-07-30] MEDS: dexAMETHasone 6 MG in SYRINGE 0 ML IV SCH (08:37)
[2022-07-30] MEDS: GABAPENTIN 600 MG TAB PO SCH ×3 (08:38→21:14)
[2022-07-30] MEDS: CHOLECALCIFEROL 1,000 UNITS 25 MCG TAB PO SCH (08:38)
[2022-07-30] MEDS: allopurinoL 100 MG TAB PO SCH ×2 (08:38→21:13)
[2022-07-30] MEDS: MAGNESIUM OXIDE 400 MG TAB PO SCH (08:38)
[2022-07-30] MEDS: traMADol HCL 50 MG TABLET PO PRN ×2 (08:41→17:49)
[2022-07-30] MEDS: SIMETHICONE 40 MG/0.6 ML 30ML PO SCH ×2 (08:42→21:14)
--- NOTE | 2022-07-30 15:32 | Hospitalist Progress Note ---
Date of Service July 30, 2022 Assessment & Plan (1) Neurogenic claudication due to lumbar spinal stenosis: Plan: - Pain management, bowel regimen and DVT ppx per the primary team - PT/OT consults -Hemoglobin fairly at baseline, compared to her past labs. (2) Hyperlipidemia: Plan: - Continue atorvastatin (3) Morbid obesity: Plan: - BMI of 39.3 on admission. - Diet and exercise to be encouraged - discussion held at bedside regarding slow increase in physical activity with goal to continue walking, engaging core exercises to strengthen back muscles, encourage PT/OT initially after surgiccal procedure (4) Hypothyroidism: Plan: - Cont levothyroxine 150 mcg DVT ppx: - teds, scds CODE: Full code Dispo: From home, likely to remain in the hospital x 1-2 days Admission and Anticipated Discharge Date Admission Date: July 29, 2022 Subjective Patient seen and examined at bedside as a follow-up of medical management for ne urogenic claudication due to lumbar spinal stenosis and status post lumbar surgery. Patient was lying in bed, on room air, NAD, reports no new acute event overnight, reports improvement in his radicular symptoms, reports operative site pain under control. Reports tolerating diet okay, is moving gas, has not moved bowel after surgery. Physical Exam Physical Exam: GENERAL: Alert and oriented x3. NAD, on RA. Obese class II HEENT: No pallor, no icterus. Pupils equal, round and reactive to light. Oral mucosa moist. NECK: No JVD, no neck masses. HEART: S1 and S2 heard. Regular rate and rhythm. No murmur, no gallop. RESPIRATORY SYSTEM: Normal AP diameter. No accessory muscle use. No wheezing, no crackles. ABDOMEN: Soft, bowel sounds present, nontender, no distention. CENTRAL NERVOUS SYSTEM: No facial droop. Speech is clear. Obeys simple commands. Moves extremities. EXTREMITIES: No edema, no erythema seen. Low back with clean dressing without soakage. RUSTY drain with moderate serosanguineous collection noted. Results & Data Results & Data Vital Signs (Past 12 Hours) Vital Signs Temp Pulse Resp BP Pulse Ox O2 Del Method 07/30/22 14:52 36.8 C 59 L 18 110/68 95 Room Air 07/30/22 07:20 36.7 C 61 18 128/74 94 Room Air 07/30/22 04:12 36.6 C 68 18 128/73 95 Room Air
[2022-07-30] MEDS: ATORVASTATIN 40 MG TAB PO SCH (21:13)
[2022-07-30] MEDS: DOCUSATE SODIUM/SENNA 50/8.6MG TAB PO SCH (21:14)
[2022-07-31] MEDS: traMADol HCL 50 MG TABLET PO PRN (06:26)
[2022-07-31] MEDS: LEVOTHYROXINE SODIUM 150 MCG TABLET PO SCH (06:26)
[2022-07-31 06:48] LABS: Hematocrit (blood only) 38.6 % (42.0-52.0); Hemoglobin 12.8 g/dl (14.0-18.0); Mean Corpuscular Hemoglobin 32.3 pg (25.0-34.0); Mean Corpuscular Hgb Conc 33.2 g/dL (32.0-36.0); Mean Corpuscular Volume 97.5 fL (80.0-100.0); Mean Platelet Volume 10.5 fL (9.4-12.4); Platelet Count 222 K/uL (130-400); RDW Coefficient of Variation 13.2 % (11.5-14.5); RDW Standard Deviation 47.4 fL (36.4-46.3); Red Blood Count 3.96 M/uL (4.70-6.10); White Blood Count 14.86 K/ul (4.8-10.8)
[2022-07-31] MEDS: allopurinoL 100 MG TAB PO SCH (08:14)
[2022-07-31] MEDS: CHOLECALCIFEROL 1,000 UNITS 25 MCG TAB PO SCH (08:14)
[2022-07-31] MEDS: GABAPENTIN 600 MG TAB PO SCH (08:14)
[2022-07-31] MEDS: MAGNESIUM OXIDE 400 MG TAB PO SCH (08:14)
[2022-07-31] MEDS: dexAMETHasone 6 MG in SYRINGE 0 ML IV SCH (08:15)
[2022-07-31] MEDS: SIMETHICONE 40 MG/0.6 ML 30ML PO SCH (08:16)
--- NOTE | 2022-07-31 09:50 | Discharge Summary ---
Date of Service July 31, 2022 Admission HPI Per Admitting Provider This is a 61-year-old male who presents with worsening back and leg pain after failing course of nonoperative care is here for surgical intervention. Principal Diagnosis Lumbar spinal stenosis with neurogenic claudication Discharge Data Allergies Allergy/AdvReac Type Severity Reaction Status Date / Time adhesive Allergy Unknown Rash Verified 07/29/22 10:08 ciprofloxacin [From Cipro] Allergy Unknown Rash Verified 07/29/22 10:08 tetanus toxoid, adsorbed Allergy Unknown Rash Verified 07/29/22 10:08 Consultations 07/29/22 16:43 Consult Hospitalist Routine Procedures Performed Operation Date: 07/29/22 11:35 Actual Procedures p L4-S1 Decompression and Fusion, Spinal Cord Monitoring(Not Applicable) - Kirk Barajsa DO Ordered Studies 07/29/22 11:35 [place] lumbar spine 2-3V Routine Hospital Course (1) Neurogenic claudication due to lumbar spinal stenosis: Patient went lumbar decompression fusion tolerated so was taken to orthopedic for postoperative postop day #1 is up and ambulating progress postop day #2. Excellent strength testing. RUSTY drain decreasing appropriately. Subsequent discharge home. Discharge orders and instructions found in chart for further review. Total Time Total Time Spent Total Time Spent (In Minutes): 20 minutes Discharge Plan Discharge Items Patient Disposition: Home - Self-Care Reason For Visit: POSTOP Discharge Diagnosis: Lumbar spinal stenosis with neurogenic claudication Activity: As commented below Non-emergency contact: Primary Care Provider Call non-emergency contact if: you have any medication questions Follow-up/Referrals: Otis Santiago M.D. [Primary Care Provider] - Diet: Regular Addtl Attending Provider Instructions: ACTIVITY RECOMMENDATIONS: SELF CARE INSTRUCTIONS AFTER THORACIC/LUMBAR FUSIONS 1. You may walk to your tolerance. It is good exercise for your legs and back. Expect some back and intermittent leg aches and pains. 2. You may perform "counter-top" level activities (make a sandwich, buck with a project, etc.). 3. No bending or lifting of more than 10 pounds or back twisting of any nature (roll like a log when turning in bed). 4. You may ride in a car for 20-30 minutes at a time. No driving until after your first visit with your doctor. 5. Frequent changes of position and restricting sitting to 30 minutes at a time will help limit the amount of back spasms and stiffness you may experience. 6. You may discontinue the use of ambulatory aids (cane, crutches, etc.) once your strength and confidence allow. 7. You may fish processing supervisor the shower and let water strike your incision when you arrive home at least once daily. Do not take a tub bath, sit in a hot tub or go into a swimming pool until after your first recheck in the office. SPECIAL CARE INSTRUCTIONS: VERY IMPORTANT TO READ AND REVIEW A. Your surgical incision has been closed with a cosmetic suture under the skin that will dissolve in about 6 weeks. In 14 days, you can use a pair of clean scissors and cut the suture that is left outside of the skin at the ends of your incision. 1. The small skin tapes can be removed 7 days after surgery if they have not fallen off by that point. 2. You may keep the wound open to air as much as possible to promote healing after post-op day number 5 unless told otherwise by your doctor. 3. If you think the wound looks like it is becoming infected (redness or worsening drainage) and/or you are experiencing fever, chill or worsening back pain and muscle spasms, contact the office so that we may evaluate you as soon as possible. B. Complications are uncommon, but please contact us if you have any signs or symptoms of: 1. wound infection (fever higher than 102.5 degrees F, redness, separation of wound, drainage, or increasing pain from the incision) 2. blood clots in legs (pain, swelling, redness and warmth in legs) 3. urinary tract infection (fever higher than 102.5 degrees F, burning upon urination or increased frequency of urination) 4. nerve problems (inability to walk on your toes or heels, numbness, loss of bowel or bladder control) 5. any other symptoms that concern you C. Please call the office at if you have any concerns or questions about your operation or recovery. D. No smoking! Smoking drastically decreases the chance of a solid fusion. E. Do not take any anti-inflammatory medications (Indocin, Advil, Motrin, Aspirin, Naprosyn, etc.) as these may inhibit the chance of a solid fusion. Tylenol is okay to take for pain. MANAGING PAIN AFTER SPINAL SURGERY 1. Narcotic medication is intended for short-term use and will be provided for surgical pain. Surgical pain usually lasts for a period of 4-6 weeks. Narcotic medication includes Percocet, Vicodin, Darvocet, Tylenol #3 or Lortab. 2. Longer-term pain is more appropriately treated with non-narcotic medication such as Tylenol ES. 3. Muscle spasm is not appropriately treated with narcotics. Muscle relaxers such as Soma, Flexeril or Skelaxin can be used along with Tylenol ES. 4. Remember that we all live with some "aches and pains". This is not unusual or uncommon after an injury or as we get older. a. Back pain is expected and may include muscle spasms for 4 to 6 weeks after surgery. The pain should gradually improve. If the pain worsens for no apparent reason, please contact the office. b. Intermittent leg pain may also be experienced and should not be concerned about unless it worsens for no apparent reason. If so, please contact the office. 5. We will provide appropriate medication within the normal guidelines of their prescribed use. We will also be very cautious and aware of potential abuse and extended duration of patients' medication needs. a. Pain medications are for your comfort and to assist with sleep and rest so that the tissue can heal. They are not provided in order to return to normal activity and should not be used through the day. To do so or worsening pain at night can result from ongoing tissue damage and development of tolerance to the prescribed medicine. 6. Please allow 2-3 days to process refills. Prescriptions will not be mailed but must be picked up at the office. FOLLOW UP VISIT: Keep your scheduled follow-up appointment. Any questions, please call the office at . Pending Studies at Discharge: No Stand-Alone Forms: My [facility], Smoking Cessation Medications and DC Order Prescriptions: New tramadol 50 mg tablet 50 mg PO Q6H PRN (Reason: pain, moderate) Qty: 30 0RF oxycodone-acetaminophen [Percocet] 5-325 mg tablet 1 tab PO Q8H Qty: 30 0RF Continued atorvastatin [Lipitor] 40 mg Tablet 40 mg PO HS hydrocodone-acetaminophen [[place]] 5-325 mg Tablet 1 tab PO TID PRN (Reason: Pain) allopurinol 100 mg Tablet 100 mg PO BID docusate sodium [Stool Softener] 100 mg Tablet 100 mg PO HS simethicone [Gas-X Extra Strength] 125 mg Capsule 125 mg PO BID PRN (Reason: Gastrointestinal Spasms Or Cramping) cyanocobalamin (vitamin B-12) [Vitamin B-12] 2,500 mcg Tablet, Sublingual 2,500 mcg SUBLINGUAL QAM ascorbic acid (vitamin C) [Vitamin C] 500 mg Tablet 500 mg PO QAM levothyroxine 150 mcg tablet 150 mcg PO QAM magnesium 250 mg Tablet 250 mg PO QAM cholecalciferol (vitamin D3) [Vitamin D3] 50 mcg (2,000 unit) Capsule 50 mcg PO QAM gabapentin 600 mg Tablet 600 mg PO TID Discharge Orders: Discharge Order (Routine); Ordered 07/31/22 Ordered By: Kirk Barajas Admission Data Admit Date/Time: 07/29/22 15:54 Attending Provider: Kirk Barajas Admit Provider: Kirk Barajas Primary Care Provider: Otis Santiago Other Providers: Alcira Chapa ; Steven Gallardo
--- NOTE | 2022-07-31 16:06 | Hospitalist Progress Note ---
Date of Service July 31, 2022 Assessment & Plan (1) Neurogenic claudication due to lumbar spinal stenosis: Plan: - Pain management, bowel regimen and DVT ppx per the primary team - PT/OT consults -Hemoglobin fairly at baseline, compared to her past labs. (2) Hyperlipidemia: Plan: - Continue atorvastatin (3) Morbid obesity: Plan: - BMI of 39.3 on admission. - Diet and exercise to be encouraged - discussion held at bedside regarding slow increase in physical activity with goal to continue walking, engaging core exercises to strengthen back muscles, encourage PT/OT initially after surgiccal procedure (4) Hypothyroidism: Plan: - Cont levothyroxine 150 mcg DVT ppx: - teds, scds CODE: Full code Dispo: per primary team Admission and Anticipated Discharge Date Admission Date: July 29, 2022 Subjective Patient seen and examined at bedside as a follow-up of medical management for neurogenic claudication due to lumbar spinal stenosis and status post lumbar surgery. Patient was working w/ PT, on room air, NAD, reports no new acute event overnight, reports improvement in his radicular symptoms, reports operative site pain under control. Reports tolerating diet okay, is moving gas, no belly pain. Physical Exam Physical Exam: GENERAL: Alert and oriented x3. NAD, on RA. Obese class II HEENT: No pallor, no icterus. Pupils equal, round and reactive to light. Oral mucosa moist. NECK: No JVD, no neck masses. HEART: S1 and S2 heard. Regular rate and rhythm. No murmur, no gallop. RESPIRATORY SYSTEM: Normal AP diameter. No accessory muscle use. No wheezing, no crackles. ABDOMEN: Soft, bowel sounds present, nontender, no distention. CENTRAL NERVOUS SYSTEM: No facial droop. Speech is clear. Obeys simple commands. Moves extremities. EXTREMITIES: No edema, no erythema seen. Low back with clean dressing without soakage. RUSTY drain with minimal serosanguineous collection noted. Results & Data Results & Data Vital Signs (Past 12 Hours) Vital Signs Temp Pulse Resp BP Pulse Ox O2 Del Method 07/31/22 08:20 147/83 H 07/31/22 07:25 36.5 C 58 L 18 155/95 H 98 Room Air
== END 2022-07-31 11:08 | disposition home or self-care (01) | DRG 455 ==
LOC: ASU 09:44 → 3E 15:54

== ENCOUNTER 2023-12-17 08:16 | Observation (INO) ==
--- NOTE | 2023-09-24 10:44 | Anesthesiology Consultation ---
Date of Service September 24, 2023 Assessment & Plan (1) Encounter for pre-operative examination: Chart Review Chart Review: Acceptable Risk for Surgery and Patient NOT seen in Pre Admission Testing -Infectious Disease screening: Per PAT nursing assessment on 09/24/23. No known infectious disease contacts in past 10 days or current infectious disease symptoms. No recent travel outside the country. L4-S1 decompression and fusion 07/29/22= Done under [place] with Grade 2 view with Zamora #2. ETT #7.5. Atraumatic; DL x 1 History Surgery Operation Date: 09/29/23 11:25 Proposed Procedures p L4-S1 Revision Decompression and Fusion, Hardware Removal L4-S1, Possible Revision L5-S1 with Illiac Bolts, with Spinal Cord Monitoring - Kirk Barajas, Height/Weight Height: 5 ft 9 in Weight: 120.202 kg Allergies Allergy/AdvReac Type Severity Reaction Status Date / Time adhesive Allergy Mild Rash Verified 09/24/23 10:00 ciprofloxacin [From Cipro] Allergy Mild Rash Verified 09/24/23 10:00 tetanus toxoid, adsorbed Allergy Mild Rash Verified 09/24/23 10:00 Medications Home Medications Medication Instructions Recorded Confirmed Last Taken allopurinol 100 mg tablet 100 mg PO BID 01/23/19 09/24/23 07/29/22 07:00 atorvastatin 40 mg tablet (Lipitor) 40 mg PO HS 01/23/19 09/24/23 07/28/22 22:00 docusate sodium 100 mg tablet 100 mg PO HS 01/23/19 09/24/23 07/28/22 22:00 (Stool Softener) hydrocodone 5 mg-acetaminophen 325 1 tab PO TID PRN Pain 01/23/19 09/24/2307/29 07:00 mg tablet ([place]) simethicone 125 mg capsule (Gas-X 125 mg PO BID Gastrointestinal 01/23/19 09/24/23 07/26/22 Extra Strength) Spasms Or Cramping ascorbic acid (vitamin C) 500 mg 500 mg PO QAM 07/09/22 09/24/23 07/28/22 07:00 tablet (Vitamin C) cholecalciferol (vitamin D3) 50 50 mcg PO QAM 07/09/22 09/24/23 07/28/22 07:00 mcg (2,000 unit) capsule (Vitamin D3) cyanocobalamin (vitamin B-12) 2,500 mcg sublingual QAM 07/09/22 09/24/23 07/28/22 07:00 2,500 mcg sublingual tablet (Vitamin B-12) levothyroxine 150 mcg tablet 150 mcg PO QAM 07/09/22 09/24/23 07/29/22 07:00 magnesium 250 mg tablet 250 mg PO QAM 07/09/22 09/24/23 07/28/22 07:00 pregabalin 100 mg capsule (Lyrica) 100 mg PO QAM 09/24/23 09/24/23 Unknown pregabalin 100 mg capsule (Lyrica) 200 mg PO HS 09/24/23 09/24/23 Unknown Past Medical History Medical History (Updated 09/24/23 @ 10:41 by Suma Cueto PA-C) Cervical stenosis of spinal canal Chronic back pain Gout No recent issues History of Lyme disease 2001- treated - caused issues with thyroid- resulted in hypothyroidism Hyperlipidemia Hypothyroidism Lumbar spinal stenosis Numbness and tingling Chronic right arm and small finger numbness and tingling- x years- no significant relief with ACDF in 2019 Past Family History Family History Other No family history of adverse response to anesthesia Past Surgical History Surgical History (Updated 09/24/23 @ 10:37 by Suma Cueto PA-C) History of lumbar spinal fusion L4-S1 decompression and fusion 07/29/22= Done under [place] with Grade 2 view with Zamora #2. ETT #7.5. Atraumatic; DL x 1 History of Angi fundoplication Hx of blepharoplasty eyelid lift Hx of cervical spine surgery per normal ROM Hx of cholecystectomy Hx of colonoscopy Hx of hernia repair X2 Social History Smoking Status: Never smoker Do You Dip or Chew Tobacco: No Hx Alcohol Use: Yes Alcohol type: wine alcohol intake frequency: holidays/special occasions only Hx Substance Use: No substance use type: does not use Lab Results Anesthesia Preop Results Results Anesthesia Widget: WBC 5.76 K/ul (4.8-10.8) 09/23/23 Hgb 15.7 g/dl (14.0-18.0) 09/23/23 Hct 46.8 % (42.0-52.0) 09/23/23 Plt 204 K/uL (130-400) 09/23/23 Na 139 mmol/L (136-145) 09/23/23 K 4.0 mmol/L (3.5-5.1) 09/23/23 Cl 107 mmol/L (98-107) 09/23/23 CO2 27 mmol/L (21-32) 09/23/23 BUN 12 mg/dl (6-23) 09/23/23 Creat 0.89 mg/dl (0.6-1.4) 09/23/23 Glucose Level 82 mg/dl (70-99(Fasting)) 09/23/23 PT 10.2 Seconds (9.0-12.0) 09/23/23 PTT 25 Seconds (21-31) 09/23/23 INR 0.9 (0.9-1.1) 09/23/23 Urine Color Yellow 09/23/23 Urine Appearance Clear (Clear) 09/23/23 Urine pH 5.5 (4.5-7.5) 09/23/23 Urine Specific [place] 1.026 (1.000-1.030) 09/23/23 Urine Protein Negative (Negative) 09/23/23 Urine Glucose (UA) Negative (Negative) 09/23/23 Urine Ketones Trace (Negative) H 09/23/23 Urine Blood Negative (Negative) 09/23/23 Urine Nitrite Negative (Negative) 09/23/23 Urine Bilirubin Negative (Negative) 09/23/23 Urine Urobilinogen Negative (Negative) 09/23/23 Urine Leukocyte Esterase Negative (Negative) 09/23/23 Blood Type A Positive 09/23/23 Antibody Screen NEGATIVE 09/23/23 Testing Electrocardiogram Date: 09/23/23 Findings: + SB @ (49bpm) Otherwise normal EKG per cardio When compared to EKG from July 15, 2022- no significant change was found per cardio Chest X-Ray Date: 09/23/23 Findings: + NAD FINDINGS: ACDF is seen. The cardiomediastinal silhouette is normal. The lungs are clear. No evidence of pleural effusion or pneumothorax.
[~2023-12-17 08:16] MED LIST changes: -DEXAMETHASONE SOD INJ 4 MG/ML VIAL ONE; -GLYCOPYRROLATE 0.2 MG/ML VIAL ONE; -LIDOCAINE 2% 2 ML VIAL/AMP(20MG/ML) INFIL ONE; +LR 60ML/HR IV SCH; -MIDAZOLAM HCL 1 MG/ML 2ML VIAL ONE; -ONDANSETRON INJ 2 MG/ML 2 ML VIAL ONE; -PHENYLEPHRINE HCL 10 MG/ML VIAL ONE; -PROPOFOL IV EMULSION 10 MG/ML 20 ML VIAL IV ONE; -ROCURONIUM BROMIDE 10 MG/ML 5 ML VIAL IV ONE; +ceFAZolin 3000MG 3,000 MG/72.5 ML BAG IV SCH; -fentaNYL citrate PF 100 MCG/2 ML VIAL ONE
[2023-12-17] MEDS: LR 60ML/HR IV SCH (08:50)
[2023-12-17] MEDS: GABAPENTIN 600 MG DOSE PO SCH (08:50)
[2023-12-17] MEDS ORDERED: LIDOCAINE 2% 2 ML VIAL/AMP(20MG/ML) INFIL ONE (08:50)
[2023-12-17] MEDS ORDERED: PROPOFOL IV EMULSION 10 MG/ML 20 ML VIAL IV ONE (08:50)
[2023-12-17] MEDS ORDERED: fentaNYL citrate PF 100 MCG/2 ML VIAL ONE ×3 (08:50→13:50)
[2023-12-17] MEDS ORDERED: ROCURONIUM BROMIDE 10 MG/ML 5 ML VIAL IV ONE (08:50)
[2023-12-17] MEDS ORDERED: ONDANSETRON INJ 2 MG/ML 2 ML VIAL ONE (08:50)
[2023-12-17] MEDS ORDERED: DEXAMETHASONE SOD INJ 4 MG/ML VIAL ONE (08:50)
[2023-12-17] MEDS ORDERED: KETAMINE HCL 10MG/ML SYR ONE (08:50)
[2023-12-17] MEDS: CeleBREX 200 MG CAP PO SCH (08:50)
[2023-12-17] MEDS ORDERED: MIDAZOLAM HCL 1 MG/ML 2ML VIAL ONE (08:50)
[2023-12-17] MEDS: ACETAMINOPHEN 500 MG TAB PO SCH (08:51)
[2023-12-17 08:53] LABS: Basophils # (auto) 0.04 K/uL (0.00-0.20); Basophils % (auto) 0.6 %; Eosinophils # (auto) 0.25 K/uL (0.00-0.50); Eosinophils % (auto) 3.8 %; Hematocrit (blood only) 45.5 % (42.0-52.0); Hemoglobin 15.4 g/dl (14.0-18.0); Immature Granulocytes # (auto) 0.03 K/uL (0.01-0.20); Immature Granulocytes % (auto) 0.5 %; Lymphocytes # (auto) 1.43 K/uL (1.20-3.40); Lymphocytes % (auto) 21.5 %; Mean Corpuscular Hemoglobin 31.8 pg (25.0-34.0); Mean Corpuscular Hgb Conc 33.8 g/dL (32.0-36.0); Mean Platelet Volume 10.4 fL (9.4-12.4); Monocytes # (auto) 0.66 K/uL (0.11-0.59); Monocytes % (auto) 9.9 %; Neutrophils # (auto) 4.23 K/uL (1.40-6.50); Neutrophils % (auto) 63.7 %; Platelet Count 197 K/uL (130-400); RDW Coefficient of Variation 13.6 % (11.5-14.5); RDW Standard Deviation 46.8 fL (36.4-46.3); Red Blood Count 4.84 M/uL (4.70-6.10); White Blood Count 6.64 K/ul (4.8-10.8)
[2023-12-17 09:05] LABS: INR 0.9 (0.9-1.1); Partial Thromboplastin Time 26 Seconds (21-31); Prothrombin Time 10.1 Seconds (9.0-12.0)
[2023-12-17 09:31] LABS: Calcium 8.8 mg/dl (8.6-10.3); Est GFR (African American) 108.5 ml/min; Est GFR (Non-African American) 93.6 ml/min; Potassium 3.7 mmol/L (3.5-5.1)
[2023-12-17] MEDS ORDERED: PHENYLEPHRINE HCL 10 MG/ML VIAL ONE (09:34)
[2023-12-17] MEDS ORDERED: ATROPINE SULFATE 0.1 MG/ML 10ML SYR IV PRN (10:01)
[2023-12-17] MEDS ORDERED: DROPERIDOL 5 MG/2 ML VIAL IV PRN (10:01)
[2023-12-17] MEDS ORDERED: ePHEDrine sulfate 50 MG/ML AMP IV PRN (10:01)
--- NOTE | 2023-12-17 10:33 | History & Physical Bridge Note ---
Date of Service December 17, 2023 History & Physical Bridge Note I have examined the patient, reviewed the History & Physical and in the interval since the performance of the History & Physical I have noted the following changes of clinical significance: no changes noted
--- NOTE | 2023-12-17 10:34 | History & Physical Report ---
Date of Service December 17, 2023 Assessment & Plan (1) Neurogenic claudication due to lumbar spinal stenosis: Plan: L4-S1 revision fusion, possible hardware removal and decompression L4-S1 possible L5-S1 cage with iliac bolts History of Present Illness Chief Complaint: Back and leg pain Primary Care Provider: Otis Santiago This is a 62-year-old male with a presents with chronic persistent back pain after failing extensive course of nonoperative care is here for surgical intervention. Allergies Allergy/AdvReac Type Severity Reaction Status Date / Time adhesive Allergy Mild Rash Verified 12/17/23 08:37 ciprofloxacin [From Cipro] Allergy Mild Rash Verified 12/17/23 08:37 tetanus toxoid, adsorbed Allergy Mild Rash Verified 12/17/23 08:37 Home Medications Medication Instructions Recorded Confirmed Type allopurinol 100 mg tablet 100 mg PO BID 01/23/19 12/17/23 History atorvastatin 40 mg tablet (Lipitor) 40 mg PO HS 01/23/19 12/17/23 History docusate sodium 100 mg tablet 100 mg PO HS 01/23/19 12/07/23 History (Stool Softener) hydrocodone 5 mg-acetaminophen 325 1 tab PO TID PRN Pain 01/23/19 12/17/23 History mg tablet ([place]) simethicone 125 mg capsule (Gas-X 125 mg PO BID Gastrointestinal 01/23/19 12/07/23 History Extra Strength) Spasms Or Cramping ascorbic acid (vitamin C) 500 mg 500 mg PO QAM 07/09/22 12/17/23 History tablet (Vitamin C) cholecalciferol (vitamin D3) 50 50 mcg PO QAM 07/09/22 12/17/23 History mcg (2,000 unit) capsule (Vitamin D3) cyanocobalamin (vitamin B-12) 2,500 mcg sublingual QAM 07/09/22 12/17/23 History 2,500 mcg sublingual tablet (Vitamin B-12) levothyroxine 150 mcg tablet 150 mcg PO QAM 07/09/22 12/17/23 History magnesium 250 mg tablet 250 mg PO QAM 07/09/22 12/17/23 History gabapentin 600 mg PO 3XD 12/17/23 12/17/23 History Past Med/Surg History Problem List Neurogenic claudication due to lumbar spinal stenosis Hypothyroidism Cervical stenosis of spinal canal Encounter for pre-operative examination Numbness and tingling RIGHT ARM AND SMALL FINGER Hyperlipidemia Medical History Lumbar spinal stenosis Cervical stenosis of spinal canal Numbness and tingling Chronic right arm and small finger numbness and tingling- x years- no significant relief with ACDF in 2019 Hypothyroidism Hyperlipidemia History of Lyme disease 2001- treated - caused issues with thyroid- resulted in hypothyroidism Chronic back pain Gout No recent issues Surgical History History of lumbar spinal fusion L4-S1 decompression and fusion 07/29/22= Done under [place] with Grade 2 view with Zamora #2. ETT #7.5. Atraumatic; DL x 1 Hx of blepharoplasty eyelid lift Hx of colonoscopy Hx of cervical spine surgery per normal ROM Hx of cholecystectomy Hx of hernia repair X2 History of Angi fundoplication Family History Other No family history of adverse response to anesthesia Social History Smoking Status: Never smoker Second Hand Exposure: No; Do You Dip or Chew Tobacco: No; Tobacco Cessation Education Requested by Patient: No Hx Alcohol Use: Yes Alcohol type: wine Hx Substance Use: No Preferred Language: Kiswahili Communication Ability: Effective Shot Fireman Required: No Beliefs That Will Affect Care: None marital status: Current Living Situation: Spouse Other Information That Helps Us Care for You: No Feels Safe at Home: Yes Safety Concerns: Feels Safe At This Time Assistive Devices: Glasses Physical Exam Physical Exam: Patient is alert and oriented Heart regular in rhythm Lungs clear Results & Data Results & Data Vital Signs (Past 12 Hours) Vital Signs Temp Pulse Resp BP Pulse Ox O2 Del Method 12/17/23 09:10 36.4 C L 55 L 20 152/93 H 97 Room Air
[2023-12-17] MEDS: ceFAZolin 3000MG 3,000 MG/72.5 ML BAG IV SCH (10:52)
[2023-12-17] MEDS: BUPIVACAINE/EPINEPHRINE 0.25% 1:200,000 30 ML VIAL ONE (11:53)
[2023-12-17] MEDS ORDERED: SUGAMMADEX SODIUM 200 MG/2 ML VIAL IV ONE (13:22)
[2023-12-17] MEDS: ceFAZolin 330 MG/ML 1 GM VIAL ONE (13:29)
[2023-12-17] MEDS: FLOSEAL HEMOSTATIC MATRIX 10ML TOP ONE (13:35)
--- NOTE | 2023-12-17 13:43 | Operative Report ---
Post Operative Report Pre & Post Diagnosis Operation Date: 12/17/23 10:05 Pre-Op Diagnosis: Neurogenic Claudication due to Lumbar Spinal Stenosis Nonunion L5-S1 with broken instrumentation Post-Op Diagnosis: Same with evidence of nonunion L4-L5. I identified the patient and participated in the time-out.: Yes Procedure Operation Date: 12/17/23 10:05 Actual Procedures #1 removal of posterior instrumentation L4-S1. #2 exploration of fusion L4-S1. #3 revision decompression with medial facetectomy foraminotomies L5-S1. #4 revision posterior spinal fusion L4-S1. #5 bilateral open SI joint fusions. #6 placement posterior instrumentation L4-S1 with bilateral iliac bolts. #7 interbody fusion L5-S1. #8 placement of Spira 13 x 26 mm at L5-S1. #9 p lacement is collagen sponge combined with Koros in the posterior lateral gutters and bilateral SI joints with os design in the interbody space. Surgeon Kirk Barajas, DO Skin Care Consultant Romero Garcia Estimated Blood Loss 350 Findings See Below The patient is 5 foot 9 weighing over 117 kg with a BMI in excess of 38. Patient's body habitus did contribute to significant technical difficulty with positioning exposure and the procedure itself adding these 50% increased operative time Specimens None Indications This is a 62-year-old male presents with evidence of fractured hardware and nonunion of the L5-S1 fusion is here for revision. Description of Procedure Patient was met with identified informed consent obtained. Patient was then taken to the operative suite underwent ablation placed in a prone position on the Weston table on top of the Mark frame. All bony promises well-padded eyes inspected to ensure no external precipice upon them. This point the lumbar spine was prepped and draped no sterile fashion. Sharp dissection with assistance bradycardias performed down to and exposing the remaining lamina and instrumentation L4-5 and S1 levels bilaterally also expose the bilateral medial iliac crest and bilateral posterior sacroiliac joints. And then proceeded to move the hardware at L4-L5 and S1 levels. Noting paucity of bone graft and gross motion at both the L4-5 L5-S1 indicative of nonunion. There were fractured pedicle screws at S1 bilaterally. I was able to remove the entire screw S1 on the left however the right to retained a fragment of screw in the pedicle. Then performed revision decompression L5-S1 including a medial facetectomy foraminotomies on the right. Pedicle screws were poor then placed in L4 L5-S1 on the left as well as bilateral iliac bolts. By way of transforaminal approach on the right revision discectomy was performed endplates guided to subcortical and bone and a 13 x 26 mm spiral cage filled with Oxyzyme bone graft apposition. Appropriate size rods were then placed and locked in the position bilaterally. I then burred the SI joints to subcortical bleeding bone bilaterally and filled them with Koros and infuse collagen sponge. This included bone graft replaced at the L4-L5 L5-S1 levels. 15 round RUSTY drain was then inserted. The incision was then closed with 1 Vicryl to fascia 2-0 Vicryl subcutaneously and 4 Monocryl for fascial closure. Steri-Strips sterile dressing placed. Patient waken taken to PACU in stable condition. Please note spinal cord monitoring was utilized at the procedure no changes noted. Lastly Romero Garcia was present at the entire procedure and all the patient positioning complex portion of the surgery and final skin closure. I attest to the content of the Intraoperative Record and any orders documented therein. Any exceptions are noted below.
[2023-12-17] MEDS ORDERED: HYDROmorphone INJ 2 MG/ML SYR/VIAL ONE (14:01)
[2023-12-17] MEDS: HYDROmorphone INJ 2 MG/ML SYR/VIAL IV PRN (14:17)
--- NOTE | 2023-12-17 14:21 | Fluoroscopy Report ---
FL lumbar spine 2-3V CLINICAL HISTORY: L4-S1 DECOMPRESSION AND FUSION POSSIBLE L1-S1 CAGE BOLTS COMPARISON STUDY: CT lumbar spine 10/22/2023. FLUOROSCOPY TIME: 25 seconds FLUOROSCOPY IMAGES: 4 Ka,r: 21.7 mGy FINDINGS: Posterior decompression and fusion from L4 through S1 with pedicle screws and rods as well as bilateral sacroiliac bolts the hardware appears intact. Disc spacers are in place. The left S1 ped icle screw has been partially removed. IMPRESSION: Fluoroscopic assistance as above. ACT 112: Negative or not required by law. Electronically signed by: Rommel Padilla M.D. 12/17/2023 2:20 PM
--- NOTE | 2023-12-17 14:26 | Anesthesiology Progress Note ---
Date of Service December 17, 2023 Anesthesia Post Procedure Vital Signs Vital Signs: Temp Pulse Pulse Resp BP BP Pulse Ox 12/17/23 14:15 55 L 15 112/71 97 12/17/23 14:05 36.0 C L 64 17 117/78 98 12/17/23 09:10 36.4 C L 55 L 20 152/93 H 97 O2 Del Method O2 Flow Rate 12/17/23 14:15 Oxymask 5 12/17/23 14:05 Oxymask 5 12/17/23 09:10 Room Air Pain Intensity Lower Back: Pain Intensity: 7 Transfer of Care Handoff Completed per policy Notes Mental Status: alert / awake / arousable and participated in evaluation Patient Amnestic to Procedure: Yes Nausea / Vomiting: adequately controlled Pain: adequately controlled Airway Patency, RR, SpO2: stable & adequate BP & HR: stable & adequate Hydration State: stable & adequate Anesthetic Complications: no major complications apparent and Pt Satisfied with anesthetic care
[2023-12-17] MEDS ORDERED: DO NOT ADMINISTER PNEUMOCOCCAL VACCINE PRN (15:15)
[2023-12-17] MEDS ORDERED: ALUMINUM/MAGNESIUM SUSP 30 ML UDC PO PRN (15:15)
[2023-12-17] MEDS ORDERED: DO NOT ADMINISTER FLU VACCINE PRN (15:15)
[2023-12-17] MEDS ORDERED: LORazepam 0.5 MG in SYRINGE 0.25 ML IV PRN (15:15)
[2023-12-17] MEDS ORDERED: ACETAMINOPHEN 500 MG TAB PO PRN (15:15)
[2023-12-17] MEDS ORDERED: MAGNESIUM HYDROXIDE SUSP 30 ML UDC PO PRN (15:15)
[2023-12-17] MEDS ORDERED: ONDANSETRON INJ 2 MG/ML 2 ML VIAL IV PRN (15:15)
[2023-12-17] MEDS ORDERED: FAMOTIDINE 20 MG TAB PO PRN (15:15)
[2023-12-17] MEDS ORDERED: METOCLOPRAMIDE HCL INJ 5 MG/ML 2 ML VIAL IV PRN (15:15)
[2023-12-17] MEDS ORDERED: PROMETHAZINE 12.5 MG/50.5 ML BAG IV PRN (15:15)
[2023-12-17] MEDS ORDERED: HYDROmorphone INJ 0.5 MG/0.5 ML SYR IV PRN (15:15)
[2023-12-17] MEDS ORDERED: LORazepam 0.5 MG TAB PO PRN (15:15)
[2023-12-17] MEDS ORDERED: ACETAMINOPHEN 1,000 MG/100 ML VIAL IV PRN (15:15)
[2023-12-17] MEDS ORDERED: bisacodyL 10 MG SUPP PR PRN (15:15)
[2023-12-17] MEDS ORDERED: diphenhydrAMINE Capsule 25 MG CAP PO PRN (15:15)
[2023-12-17] MEDS ORDERED: SOD PHOSPHATE/SOD BIPHOSPHATE ENEMA 132 ML BTL PR PRN (15:15)
[2023-12-17] MEDS ORDERED: NALOXONE HCL 0.4 MG/1 ML VIAL/CARP IV PRN (15:15)
[2023-12-17] MEDS ORDERED: traMADol HCL 50 MG TABLET PO PRN (15:15)
[2023-12-17] MEDS ORDERED: ONDANSETRON 4 MG OD TAB PO PRN (15:15)
[2023-12-17] MEDS ORDERED: hydrOXYzine HCl 25 MG TAB PO PRN (15:15)
--- NOTE | 2023-12-17 15:38 | Consultation ---
Date of Consultation December 17, 2023 Assessment & Plan (1) Neurogenic claudication due to lumbar spinal stenosis: (2) Hypothyroidism: (3) Hyperlipidemia: (4) Gout: Plan Mr. Sifuentes is a 62 year old male who presents to the ED for an elective L4-S1 revision under the care of Dr. Barajas after failed conservative measures. Lumbar x-ray preformed: Posterior decompression and fusion from L4 through S1 with pedicle screws and rods as well as bilateral sacroiliac bolts the hardware appears intact. Disc spacers are in place. The left S1 pedicle screw has been partially removed. PMH involves: HLD, gout, and hypothyroidism. Neurogenic Claudication due to lumbar spinal stenosis: POD# 0 s/p decompression and fusion surgery with revision L4-S1 with Dr. Barajas. Per ortho for pain control, wound care, anticoagulation and activities. Monitor H&H, pre op Hgb 15.4 continue incentive spirometry; demonstrated appropriate use. PT/OT when appropriate Hypothyroidism: Chronic Takes levothyroxine; continue HLD: Chronic Takes Lipitor; continue H/O Gout: Chronic Takes Allopurinol; continue Disposition: PCP: unassigned Code Status: Full code VTE Prophylaxis: per admitting team. I spent a total of 62 minutes coordinating, documenting, and providing care for this patient excluding time spent in the performance of separately billed services. All of the aforementioned completed while collaborating with the assigned attending physician for a full treatment plan. Please see their addendum for further details. Supervising Physician Co-Signing Physician Notes Patient was seen and examined at bedside as medical consult status post lumbar surgery. POD 0. Patient reports improvement in his bilateral radicular signs and symptoms, reports operative site pain manageable w/ pain meds, pt advised to utilize prn pain meds, denies febrile illness or cough in the last 1 week. Patient doing well postoperatively. Continue with pain management, bowel regimen, PT/OT when able, DVT prophylaxis per primary. Continue other home medications as able. Monitor for acute blood loss anemia. Labs in AM. On exam: GENERAL: Alert and oriented x3. NAD, on RA. HEENT: No pallor, no icterus. Pupils equal, round and reactive to light. Oral mucosa moist. NECK: No JVD, no neck masses. HEART: S1 and S2 heard. Regular rate and rhythm. No murmur, no gallop. RESPIRATORY SYSTEM: Normal AP diameter. No accessory muscle use. No wheezing, no crackles. ABDOMEN: Soft, bowel sounds present, nontender, no distention. CENTRAL NERVOUS SYSTEM: No facial droop. Speech is clear. Obeys simple commands. Moves extremities. EXTREMITIES: No edema, no erythema seen. Lower back dressing without soakage. RUSTY drain with minimal serosanguineous collection noted. Distal neurovascular status WNL x BLE. UC in situ, light yellow urine collection noted in the bag. I have seen and examined the patient and have discussed the case with the provider above. I agree with the assessment and plan as stated. History of Present Illness Requesting Physician: Dr. Barajas Reason for Consultation: post op medical consultation Attending Physician: Kirk Barajas DO History of Present Illness Mr. Sifuentes is a 62 year old male who presents to the ED for an elective L4-S1 revision under the care of Dr. Barajas after failed conservative measures. Lumbar x-ray preformed: Posterior decompression and fusion from L4 through S1 with pedicle screws and rods as well as bilateral sacroiliac bolts the hardware appears intact. Disc spacers are in place. The left S1 pedicle scr ew has been partially removed. PMH involves: HLD, gout, and hypothyroidism. Pt denies tobacco use, social alcohol use, no recreational drug use. Pt is AAOx4 post op, denies neuropathy and is able to wiggle toes. He has RUSTY drain x1 with delbert red bloody output. Has tolerated jello without nausea. Pt has a wesley catheter and demonstrated appropriate use of ISB. His care was reviewed with his , Mabel, at [facility]. [facility] Hospitalist service was consulted for post-operative medical management. Thank you kindly for this consultation. We are available 16/11 for any questions or concerns. Allergies Allergy/AdvReac Type Severity Reaction Status Date / Time adhesive Allergy Mild Rash Verified 12/17/23 08:37 ciprofloxacin [From Cipro] Allergy Mild Rash Verified 12/17/23 08:37 tetanus toxoid, adsorbed Allergy Mild Rash Verified 12/17/23 08:37 Home Medications Medication Instructions Recorded Confirmed Type allopurinol 100 mg tablet 100 mg PO BID 01/23/19 12/17/23 History atorvastatin 40 mg tablet (Lipitor) 40 mg PO HS 01/23/19 12/17/23 History docusate sodium 100 mg tablet 100 mg PO HS 01/23/19 12/17/23 History (Stool Softener) hydrocodone 5 mg-acetaminophen 325 1 tab PO TID PRN Pain 01/23/19 12/17/23 History mg tablet ([place]) simethicone 125 mg capsule (Gas-X 125 mg PO BID Gastrointestinal 01/23/19 12/17/23 History Extra Strength) Spasms Or Cramping ascorbic acid (vitamin C) 500 mg 500 mg PO QAM 07/09/22 12/17/23 History tablet (Vitamin C) cholecalciferol (vitamin D3) 50 50 mcg PO QAM 07/09/22 12/17/23 History mcg (2,000 unit) capsule (Vitamin D3) cyanocobalamin (vitamin B-12) 2,500 mcg sublingual QAM 07/09/22 12/17/23 History 2,500 mcg sublingual tablet (Vitamin B-12) levothyroxine 150 mcg tablet 150 mcg PO QAM 07/09/22 12/17/23 History magnesium 250 mg tablet 250 mg PO QAM 07/09/22 12/17/23 History gabapentin 600 mg PO 3XD 12/17/23 12/17/23 History Patient History Medical History Lumbar spinal stenosis Cervical stenosis of spinal canal Numbness and tingling Chronic right arm and small finger numbness and tingling- x years- no sig nificant relief with ACDF in 2019 Hypothyroidism Hyperlipidemia History of Lyme disease 2001- treated - caused issues with thyroid- resulted in hypothyroidism Chronic back pain Gout No recent issues Surgical History History of lumbar spinal fusion L4-S1 decompression and fusion 07/29/22= Done under [facility] with Grade 2 view with Zamora #2. ETT #7.5. Atraumatic; DL x 1 Hx of blepharoplasty eyelid lift Hx of colonoscopy Hx of cervical spine surgery per normal ROM Hx of cholecystectomy Hx of hernia repair X2 History of Angi fundoplication Family History Other No family history of adverse response to anesthesia Social History Smoking Status: Never smoker Second Hand Exposure: No; Do You Dip or Chew Tobacco: No; Tobacco Cessation Education Requested by Patient: No Hx Alcohol Use: Yes Alcohol type: wine Hx Substance Use: No Preferred Language: French Communication Ability: Effective Director Strategic Account Management Required: No Beliefs That Will Affect Care: None marital status: Current Living Situation: Spouse Other Information That Helps Us Care for You: No Feels Safe at Home: Yes Safety Concerns: Feels Safe At This Time Assistive Devices: Glasses Review of Systems Review of Systems: Neuro: (-) Falls, trauma, slurred speech HEENT: (-) [place], dizziness, dysphagia, visual or auditory changes CV: (-) CP, palpitations, swelling Resp: (-) SOB GI: (-) appetite changes, N/V/D, bowel changes : (-) urinary changes Skin: (-) rashes Psych: (-) anxiety, depression Physical Exam Physical Exam: See Dr. Gallardo addendum for further assessment details Results & Data Vital Signs (Past 12 Hours) Vital Signs Temp Pulse Pulse Resp BP BP Pulse Ox 12/17/23 15:15 36.5 C 60 16 116/73 97 12/17/23 14:45 36.4 C L 61 16 115/71 98 12/17/23 14:35 57 L 18 115/71 96 12/17/23 14:25 62 15 133/75 96 12/17/23 14:15 55 L 15 112/71 97 12/17/23 14:05 36.0 C L 64 17 117/78 98 12/17/23 09:10 36.4 C L 55 L 20 152/93 H 97 O2 Del Method O2 Flow Rate 12/17/23 15:15 Nasal Cannula 2 12/17/23 14:45 Nasal Cannula 2 12/17/23 14:35 Nasal Cannula 2 12/17/23 14:25 Room Air 12/17/23 14:15 Oxymask 5 12/17/23 14:05 Oxymask 5 12/17/23 09:10 Room Air Laboratory Results Short CBC 12/17/23 Range/Units 08:33 WBC 6.64 (4.8-10.8) K/ul Hgb 15.4 (14.0-18.0) g/dl Hct 45.5 (42.0-52.0) % Plt Count 197 (130-400) K/uL BMP 12/17/23 08:33 Sodium 142 Potassium 3.7 Chloride 109 H Carbon Dioxide 27 BUN 12 Creatinine 0.86 Glucose 94 Calcium 8.8
[2023-12-17] MEDS: HYDROmorphone INJ 1 MG/ML SYRINGE IV PRN (16:13)
[2023-12-17] MEDS: LACTATED RINGER'S 1,000 ML IV SCH (16:14)
[2023-12-17] MEDS: GABAPENTIN 600 MG TAB PO SCH (16:15)
[2023-12-17] MEDS: ceFAZolin 2000MG 2,000 MG/15 ML SYR IV SCH (18:09)
[2023-12-17] MEDS: ATORVASTATIN 40 MG TAB PO SCH (19:47)
[2023-12-17] MEDS: SIMETHICONE 80 MG CHEW PO SCH (19:48)
[2023-12-17] MEDS: DOCUSATE SODIUM/SENNA 50/8.6MG TAB PO SCH (19:48)
[2023-12-17] MEDS: allopurinoL 100 MG TAB PO SCH (19:48)
[2023-12-17 23:10] VITALS: RESP 16
[2023-12-17] MEDS: oxyCODONE HCL IR 5 MG TAB (IMMEDIATE RELEASE) PO PRN (23:56)
[2023-12-18] MEDS: LEVOTHYROXINE SODIUM 150 MCG TABLET PO SCH (05:53)
[2023-12-18] MEDS: POLYETHYLENE (MIRALAX) 17 GM PACK PO SCH (05:53)
[2023-12-18 07:04] LABS: Basophils # (auto) 0.01 K/uL (0.00-0.20); Basophils % (auto) 0.1 %; Hematocrit (blood only) 38.1 % (42.0-52.0); Hemoglobin 13.1 g/dl (14.0-18.0); Immature Granulocytes # (auto) 0.05 K/uL (0.01-0.20); Immature Granulocytes % (auto) 0.3 %; Lymphocytes # (auto) 0.79 K/uL (1.20-3.40); Lymphocytes % (auto) 5.5 %; Mean Corpuscular Hemoglobin 32.2 pg (25.0-34.0); Mean Corpuscular Hgb Conc 34.4 g/dL (32.0-36.0); Mean Corpuscular Volume 93.6 fL (80.0-100.0); Mean Platelet Volume 10.4 fL (9.4-12.4); Monocytes % (auto) 6.3 %; Neutrophils # (auto) 12.54 K/uL (1.40-6.50); Neutrophils % (auto) 87.8 %; Platelet Count 173 K/uL (130-400); RDW Coefficient of Variation 13.4 % (11.5-14.5); RDW Standard Deviation 46.2 fL (36.4-46.3); Red Blood Count 4.07 M/uL (4.70-6.10); White Blood Count 14.29 K/ul (4.8-10.8)
[2023-12-18 07:35] LABS: Calcium 8.4 mg/dl (8.6-10.3); Creatinine Clr Calc Pharmacy 104.3 ml/min; Est GFR (Non-African American) 87.2 ml/min; Potassium 4.4 mmol/L (3.5-5.1)
[2023-12-18] MEDS: CYANOCOBALAMIN (B-12) 2,500 MCG TABLET SL SCH (09:01)
[2023-12-18] MEDS: ASCORBIC ACID 500 MG TAB PO SCH (09:01)
[2023-12-18] MEDS: CHOLECALCIFEROL 25 MCG (1000 UNITS) TAB PO SCH (09:01)
[2023-12-18] MEDS: dexAMETHasone 6 MG in SYRINGE 0 ML IV SCH (09:02)
[2023-12-18] MEDS: MAGNESIUM OXIDE 400 MG TAB PO SCH (09:02)
--- NOTE | 2023-12-18 09:32 | Orthopedic Progress Note ---
Date of Service December 18, 2023 Assessment & Plan (1) Neurogenic claudication due to lumbar spinal stenosis: Plan: Assessment status post revision fusion. Plan at this time we will initiate physical therapy monitor his progress throughout the week and hopefully discharge home in the next few days. Admission and Anticipated Discharge Date Admission Date: December 17, 2023 Subjective Back pain controlled leg pain improved patient was up and ambulating last night Physical Exam Physical Exam: Patient currently in bed. Is comfortable. Distracted testing. Results & Data Vital Signs (Past 12 Hours) Vital Signs Temp Pulse Resp BP BP Pulse Ox O2 Del Method 12/18/23 07:23 36.4 C L 60 16 108/71 95 Room Air 12/18/23 03:56 36.5 C 66 16 120/78 94 Room Air 12/17/23 23:09 36.6 C 70 16 94/65 L 96 Room Air Queries Orthopedic Spine Obesity: Yes
--- NOTE | 2023-12-18 12:09 | Hospitalist Progress Note ---
Date of Service December 18, 2023 Assessment & Plan (1) Neurogenic claudication due to lumbar spinal stenosis: Plan: Operation Date: 12/17/23 10:05 Actual Procedures #1 removal of posterior instrumentation L4-S1. #2 exploration of fusion L4-S1. #3 revision decompression with medial facetectomy foraminotomies L5-S1. #4 revision posterior spinal fusion L4-S1. #5 bilateral open SI joint fusions. #6 placement posterior instrumentation L4-S1 with bilateral iliac bolts. #7 interbody fusion L5-S1. #8 placement of Spira 13 x 26 mm at L5-S1. #9 placement is collagen sponge combined with Koros in the posterior lateral gutters and bilateral SI joints with os design in the interbody space. (2) Hypothyroidism: (3) Hyperlipidemia: (4) Gout: Plan Patient status post revision of lumbar surgery, overall appears to be doing well. Medical standpoint and medical conditions all stable and at baseline. Encouraged activity as directed by attending Continue current medical care Medically maximized for discharge when appropriate and determined by attending physician Admission and Anticipated Discharge Date Admission Date: December 17, 2023 Subjective Patient states overall his pain is well-controlled Physical Exam Physical Exam: Constitutional: Alert Lungs: Clear to auscultation, decreased, no wheezes rales or rhonchi CV: S1-S2, regular Abdomen: Soft, nontender, nondistended Extremities: No significant edema Psych: Cooperative, normal mood Results & Data Results & Data Vital Signs (Past 12 Hours) Vital Signs Temp Pulse Resp BP Pulse Ox O2 Del Method 12/18/23 07:23 36.4 C L 60 16 108/71 95 Room Air 12/18/23 03:56 36.5 C 66 16 120/78 94 Room Air Diagnostic Findings Reviewed imaging, laboratory and diagnostic studies. Pertinent findings as below. Laboratory studies stable
[2023-12-18 21:58] VITALS: O2SAT 96
[2023-12-19 07:23] VITALS: BP 127/76; PULSE 50; TEMP 98.1
--- NOTE | 2023-12-19 10:40 | Discharge Summary ---
Date of Service December 19, 2023 Admission HPI Per Admitting Provider This is a 62-year-old male with a presents with chronic persistent back pain after failing extensive course of nonoperative care is here for surgical intervention. Principal Diagnosis Nonunion L5-S1 fusion Discharge Data Allergies Allergy/AdvReac Type Severity Reaction Status Date / Time adhesive Allergy Mild Rash Verified 12/17/23 08:37 ciprofloxacin [From Cipro] Allergy Mild Rash Verified 12/17/23 08:37 tetanus toxoid, adsorbed Allergy Mild Rash Verified 12/17/23 08:37 Consultations 12/17/23 15:15 Consult Hospitalist Routine Procedures Performed Operation Date: 12/17/23 10:05 Actual Procedures p L4-S1 Revision Fusion, and Decompression, L5 to S1 Cage with Iliac Bolts, Spinal Cord Monitoring(Not Applicable) - DO ravi Todd Hardware Removal(Not Applicable) - Kirk Barajas DO Ordered Studies 12/17/23 10:05 [place] lumbar spine 2-3V Routine Hospital Course (1) Neurogenic claudication due to lumbar spinal stenosis: Patient went revision fusion tolerated as well as taken to orthopedic for postoperative. Postop he progressed appropriately. Edema control. RUSTY drain decreasing. Exercise testing. Subsidy discharged home. Discharge orders instructions from chart for further review. Total Time Total Time Spent Total Time Spent (In Minutes): In the next Discharge Plan Discharge Items Patient Disposition: Home - Self-Care Reason For Visit: Hardware Failure of Anterior Column of Spine, Pseu Discharge Diagnosis: Nonunion lumbar fusion Activity: As commented below Non-emergency contact: Primary Care Provider Call non-emergency contact if: you have any medication questions Follow-up/Referrals: Otis Santiago M.D. [Primary Care Provider] - Diet: Regular Addtl Attending Provider Instructions: ACTIVITY RECOMMENDATIONS: SELF CARE INSTRUCTIONS AFTER THORACIC/LUMBAR FUSIONS 1. You may walk to your tolerance. It is good exercise for your legs and back. Expect some back and intermittent leg aches and pains. 2. You may perform "counter-top" level activities (make a sandwich, buck with a project, etc.). 3. No bending or lifting of more than 10 pounds or back twisting of any nature (roll like a log when turning in bed). 4. You may ride in a car for 20-30 minutes at a time. No driving until after your first visit with your doctor. 5. Frequent changes of position and restricting sitting to 30 minutes at a time will help limit the amount of back spasms and stiffness you may experience. 6. You may discontinue the use of ambulatory aids (cane, crutches, etc.) once your strength and confidence allow. 7. You may structured cabling technician the shower and let water strike your incision when you arrive home at least once daily. Do not take a tub bath, sit in a hot tub or go into a swimming pool until after your first recheck in the office. SPECIAL CARE INSTRUCTIONS: VERY IMPORTANT TO READ AND REVIEW A. Your surgical incision has been closed with a cosmetic suture under the skin that will dissolve in about 6 weeks. In 14 days, you can use a pair of clean scissors and cut the suture that is left outside of the skin at the ends of your incision. 1. The small skin tapes can be removed 7 days after surgery if they have not fallen off by that point. 2. You may keep the wound open to air as much as possible to promote healing after post-op day number 5 unless told otherwise by your doctor. 3. If you think the wound looks like it is becoming infected (redness or worsening drainage) and/or you are experiencing fever, chill or worsening back pain and muscle spasms, contact the office so that we may evaluate you as soon as possible. B. Complications are uncommon, but please contact us if you have any signs or symptoms of: 1. wound infection (fever higher than 102.5 degrees F, redness, separation of wound, drainage, or increasing pain from the incision) 2. blood clots in legs (pain, swelling, redness and warmth in legs) 3. urinary tract infection (fever higher than 102.5 degrees F, burning upon urination or increased frequency of urination) 4. nerve problems (inability to walk on your toes or heels, numbness, loss of bowel or bladder control) 5. any other symptoms that concern you C. Please call the office at if you have any concerns or questions about your operation or recovery. D. No smoking! Smoking drastically decreases the chance of a solid fusion. E. Do not take any anti-inflammatory medications (Indocin, Advil, Motrin, Aspirin, Naprosyn, etc.) as these may inhibit the chance of a solid fusion. Tylenol is okay to take for pain. MANAGING PAIN AFTER SPINAL SURGERY 1. Narcotic medication is intended for short-term use and will be provided for surgical pain. Surgical pain usually lasts for a period of 4-6 weeks. Narcotic medication includes Percocet, Vicodin, Darvocet, Tylenol #3 or Lortab. 2. Longer-term pain is more appropriately treated with non-narcotic medication such as Tylenol ES. 3. Muscle spasm is not appropriately treated with narcotics. Muscle relaxers such as Soma, Flexeril or Skelaxin can be used along with Tylenol ES. 4. Remember that we all live with some "aches and pains". This is not unusual or uncommon after an injury or as we get older. a. Back pain is expected and may include muscle spasms for 4 to 6 weeks after surgery. The pain should gradually improve. If the pain worsens for no apparent reason, please contact the office. b. Intermittent leg pain may also be experienced and should not be concerned about unless it worsens for no apparent reason. If so, please contact the office. 5. We will provide appropriate medication within the normal guidelines of their prescribed use. We will also be very cautious and aware of potential abuse and extended duration of patients' medication needs. a. Pain medications are for your comfort and to assist with sleep and rest so that the tissue can heal. They are not provided in order to return to normal activity and should not be used through the day. To do so or worsening pain at night can result from ongoing tissue damage and development of tolerance to the prescribed medicine. 6. Please allow 2-3 days to process refills. Prescriptions will not be mailed but must be picked up at the office. FOLLOW UP VISIT: Keep your scheduled follow-up appointment. Any questions, please call the office at . Pending Studies at Discharge: No Stand-Alone Forms: My [email or web address], Smoking Cessation Medications and HI Order Prescriptions: New tramadol 50 mg tablet 50 mg PO Q6H PRN (Reason: pain, moderate) Qty: 30 0RF oxycodone 5 mg tablet 5 mg PO Q6H PRN (Reason: pain) Qty: 30 0RF Continued atorvastatin [Lipitor] 40 mg Tablet 40 mg PO HS allopurinol 100 mg Tablet 100 mg PO BID docusate sodium [Stool Softener] 100 mg Tablet 100 mg PO HS simethicone [Gas-X Extra Strength] 125 mg Capsule 125 mg PO BID cyanocobalamin (vitamin B-12) [Vitamin B-12] 2,500 mcg Tablet, Sublingual 2,500 mcg SUBLINGUAL QAM ascorbic acid (vitamin C) [Vitamin C] 500 mg Tablet 500 mg PO QAM levothyroxine 150 mcg tablet 150 mcg PO QAM magnesium 250 mg Tablet 250 mg PO QAM cholecalciferol (vitamin D3) [Vitamin D3] 50 mcg (2,000 unit) Capsule 50 mcg PO QAM gabapentin 600 mg tablet 600 mg PO 3XD No Action hydrocodone-acetaminophen [[place]] 5-325 mg Tablet 1 tab PO TID PRN (Reason: Pain) Discharge Orders: Discharge Order (Routine); Ordered 12/19/23 Ordered By: Kirk Barajas Admission Data Admit Date/Time: 12/17/23 13:46 Attending Provider: Kirk Barajas Admit Provider: Kirk Barajas Primary Care Provider: Otis Santiago Other Providers: Alcira Chapa
== END 2023-12-19 11:43 | disposition home or self-care (01) | DRG 454 ==
LOC: ASU 08:16 → INTOOBSV 13:46 → 3E 13:46